=== PATIENT | male | born 1990 | race Caucasian/White ===

== ENCOUNTER 2018-09-23 16:50 | Emergency (ER) | payer OTHER ==
[2018-09-23] MEDS ORDERED: ONDANSETRON 4 MG TAB.RAPDIS PO ONE ×2 (19:05→19:11)
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
[2018-09-24 01:47] VITALS: BP 136/81
== END 2018-09-24 01:48 | disposition home or self-care (01) ==
LOC: ER 16:50
DX: T76.21XA Adult sexual abuse, suspected, initial encounter (principal); R41.3 Other amnesia; X58.XXXA Exposure to other specified factors, initial encounter; Z88.0 Allergy status to penicillin; Z90.49 Acquired absence of other specified parts of digestive tract
CPT/HCPCS: 99285; S0119

== ENCOUNTER 2018-10-01 08:05 | Emergency (ER) | payer OTHER ==
[2018-10-01] MEDS ORDERED: MAG HYDROX/AL HYDROX/SIMETH SUSP 30 ML UDCUP PO ONE (08:37)
[2018-10-01] MEDS ORDERED: METOCLOPRAMIDE HCL ORAL SOLN 10 MG/10 ML UDCUP PO ONE (08:37)
[2018-10-01] MEDS ORDERED: LIDOCAINE 2% VISCOUS SOLN 20 ML UDCUP PO ONE (08:37)
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
[2018-10-01 08:53] LABS: ABSOLUTE EOSINOPHILS # (AUTO) 0.4 10^3/uL (0.0-0.6); ABSOLUTE LYMPHOCYTES (AUTO) 1.3 10^3/uL (0.5-4.7); ABSOLUTE MONOCYTES (AUTO) 0.5 10^3/uL (0.1-1.4); ABSOLUTE NEUT (AUTO) 3.8 10^3/uL (1.7-8.2); BASOPHILS % (AUTO) 0.5 % (0-2); EOSINOPHILS % (AUTO) 6.8 % (0-6); HEMATOCRIT 47.9 % (37.9-51.0); HEMOGLOBIN 16.9 g/dL (13.5-17.0); MEAN CORPUSCULAR HEMOGLOBIN 30.6 pg (27.0-33.4); MEAN CORPUSCULAR HGB CONC 35.3 g/dL (32.0-36.0); MEAN CORPUSCULAR VOLUME 87 fl (80-97); MONOCYTES % (AUTO) 8.1 % (3-13); PLATELET COUNT 236 10^3/uL (150-450); RED BLOOD COUNT 5.54 10^6/uL (4.35-5.55); RED CELL DISTRIBUTION WIDTH 12.9 % (11.5-14.0); SEGMENTED NEUTROPHILS % (AUTO) 62.6 % (42-78); TOTAL CELLS COUNTED % (AUTO) 100 %; WHITE BLOOD COUNT 6.1 10^3/uL (4.0-10.5)
[2018-10-01 09:02] LABS: ALANINE AMINOTRANSFERASE 32 U/L (21-72); ALBUMIN 4.2 g/dL (3.5-5.0); ALKALINE PHOSPHATASE 61 U/L (38-126); ANION GAP 10 (5-19); ASPARTATE AMINO TRANSFERASE 29 U/L (17-59); BILIRUBIN,DIRECT 0.2 mg/dL (0.0-0.4); BILIRUBIN,TOTAL 0.8 mg/dL (0.2-1.3); BLOOD UREA NITROGEN 12 mg/dL (7-20); CALCIUM 9.6 mg/dL (8.4-10.2); CARBON DIOXIDE 22 mmol/L (22-30); CHLORIDE 109 mmol/L (98-107); GLUCOSE 122 mg/dL (75-110); LIPASE 1323.3 U/L (23-300); POTASSIUM 4.1 mmol/L (3.6-5.0); SODIUM 140.8 mmol/L (137-145); TOTAL PROTEIN 6.3 g/dL (6.3-8.2)
--- NOTE | 2018-10-01 09:25 | RADIOLOGY REPORT (SQ) ---
EXAM DESCRIPTION: CHEST SINGLE VIEW COMPLETED DATE/TIME: 10/01/2018 8:58 am REASON FOR STUDY: epigastric/cp COMPARISON: None. NUMBER OF VIEWS: One view. TECHNIQUE: Single frontal radiographic view of the chest acquired. LIMITATIONS: None. FINDINGS: LUNGS AND PLEURA: No opacities, masses or pneumothorax. No pleural effusion. MEDIASTINUM AND HILAR STRUCTURES: No masses. Contour normal. HEART AND VASCULAR STRUCTURES: Heart normal in size. Normal vasculature. BONES: No acute findings. HARDWARE: None in the chest. OTHER: No other significant finding. IMPRESSION: NO SIGNIFICANT RADIOGRAPHIC FINDING IN THE CHEST. TECHNICAL DOCUMENTATION: JOB ID: [id number] [employer]- All Rights Reserved Reading location - IP/workstation name: [email or web address]
--- NOTE | 2018-10-01 10:37 | RADIOLOGY REPORT (SQ) ---
EXAM DESCRIPTION: CT ABD/PELVIS WITH IV ONLY COMPLETED DATE/TIME: 10/01/2018 10:19 am REASON FOR STUDY: elevated lipase, epigastric pain COMPARISON: Abdominal ultrasound 02/06/2016 TECHNIQUE: CT scan of the abdomen and pelvis performed using helical scanning technique with dynamic intravenous contrast injection. No oral contrast. Images reviewed with lung, soft tissue, and bone windows. Reconstructed coronal and sagittal MPR images reviewed. Delayed images for evaluation of the urinary system also acquired. All images stored on PACS. All CT scanners at this facility use dose modulation, iterative reconstruction, and/or weight based d osing when appropriate to reduce radiation dose to as low as reasonably achievable (ALARA). [facility]: Dose Right [facility]: CareDose [facility]: Dose Right [facility]: Teradose 4D [facility]: [employer] CONTRAST TYPE AND DOSE: contrast/concentration: Isovue 350.00 mg/ml; Total Contrast Delivered: 100.0 ml; Total Saline Delivered: 72.0 ml RENAL FUNCTION: Creatinine 0.96 RADIATION DOSE: CT Rad equipment meets quality standard of care and radiation dose reduction techniq ues were employed. CTDIvol: 11.3 - 15.5 mGy. DLP: 1600 mGy-cm.. LIMITATIONS: None. FINDINGS: LOWER CHEST: Lung bases are clear. Small hiatal hernia LIVER: Normal size. No masses. No dilated ducts. SPLEEN: Normal size. No focal lesions. PANCREAS: No masses. No significant calcifications. No adjacent inflammation or peripancreatic fluid collections. Pancreatic duct not dilated. GALLBLADDER: Surgically absent ADRENAL GLANDS: No significant masses or asymmetry. RIGHT KIDNEY AND URETER: No solid masses. No significant calcifications. No hydronephrosis or hyd roureter. LEFT KIDNEY AND URETER: No solid masses. No significant calcifications. No hydronephrosis or hydr oureter. AORTA AND VESSELS: No aneurysm. No dissection. Renal arteries, SMA, celiac without stenosis. RETROPERITONEUM: No retroperitoneal adenopathy, hemorrhage or masses. BOWEL AND PERITONEAL CAVITY: No masses or inflammatory changes. No free fluid or peritoneal masses. APPENDIX: Normal. PELVIS: No mass. No free fluid. Normal bladder. ABDOMINAL WALL: No masses. No hernias. BONES: No significant or acute findings. OTHER: No other significant finding. IMPRESSION: Post cholecystectomy No peripancreatic fluid collections or inflammatory changes TECHNICAL DOCUMENTATION: JOB ID: [id number] Quality ID # [id number]: Final reports with documentation of one or more dose reduction techniques (e.g., Au tomated exposure control, adjustment of the mA and/or kV according to patient size, use of iterative reconstruction technique) 2010 [employer]- All Rights Reserved Reading location - IP/workstation name: [email or web address]
[2018-10-01] MEDS ORDERED: HYDROMORPHONE HCL INJ/PF 2 MG/ML AMPULE IV ONE (10:47)
[2018-10-01 11:46] VITALS: BP 130/80
--- NOTE | 2018-10-01 16:57 | EKG REPORT ---
SEVERITY:- ABNORMAL ECG - SINUS RHYTHM : Confirmed by: Margo Patricio 01-Oct-2018 16:56:45
== END 2018-10-01 11:45 | disposition home or self-care (01) ==
LOC: ER 08:05
DX: R10.13 Epigastric pain (principal); R74.8 Abnormal levels of other serum enzymes; R20.2 Paresthesia of skin; F17.200 Nicotine dependence, unspecified, uncomplicated; Z20.6 Contact with and (suspected) exposure to human immunodeficiency virus [HIV]; Z88.0 Allergy status to penicillin; Z87.19 Personal history of other diseases of the digestive system; Z90.49 Acquired absence of other specified parts of digestive tract
CPT/HCPCS: 93005; 99284; 96374; 36415; 83690; 85025; 80053; 84484; 71045; 74177; 93010; J3490; J1170

== ENCOUNTER 2018-10-24 13:15 | Observation (INO) | payer OTHER ==
[2018-10-24] MEDS ORDERED: KETOROLAC TROMETHAMINE INJ/PF 30 MG/1 ML SDV IV ONE (14:10)
[2018-10-24] MEDS ORDERED: FENTANYL CITRATE INJ/PF 100 MCG/2 ML AMPUL IV ONE (14:10)
[2018-10-24] MEDS ORDERED: ONDANSETRON HCL INJ/PF 4 MG/2 ML SDV IV ONE (14:10)
[2018-10-24] MEDS ORDERED: NORMAL SALINE 1000 ML 1,000 ML IV ONE (14:10)
--- NOTE | 2018-10-24 14:12 | ER Document Report ---
ED Medical Screen (RME) - General Chief Complaint: Epigastric Pain Stated Complaint: CHEST PAIN Time Seen by Provider: 10/24/18 14:07 Primary Care Provider: JUAN,MIGUEL [Primary Care Provider] - Follow up as needed Notes: Chief complaint: Abdominal pain History of complain:( obtained from----patient) 28 years old male with a history of pancreatitis diagnosed recently, status post cholecystectomy presents today with mid abdominal pain and nausea. PHYSICAL EXAMINATION: GENERAL: Well-appearing, well-nourished and in no acute distress. HEAD: Atraumatic, normocephalic. EYES: Pupils equal round and reactive to light, extraocular movements intact, conjunctiva are normal. ENT: Nares patent, oropharynx clear without exudates. Moist mucous membranes. NECK: Normal range of motion, supple without lymphadenopathy LUNGS: Breath sounds clear to auscultation bilaterally and equal. No wheezes rales or rhonchi. HEART: Regular rate and rhythm without murmurs ABDOMEN: Soft, mid abdominal tenderness noted, nondistended abdomen. No guarding, no rebound. No masses appreciated. Examination of genitals-deferred Musculoskeletal: Normal range of motion, no pitting or edema. No cyanosis. N Dictation was performed using [employer] voice recognition software TRAVEL OUTSIDE OF THE [place] IN LAST 30 DAYS: No - Related Data Allergies/Adverse Reactions: amoxicillin [Amoxicillin] Allergy (Severe, Verified 10/24/18 13:17) Hives Past Medical History - Past Medical History Cardiac Medical History: Denies: Hx Coronary Artery Disease, Hx Heart Attack, Hx Hypertension Pulmonary Medical History: Denies: Hx Asthma, Hx Bronchitis, Hx COPD, Hx Pneumonia Neurological Medical History: Reports: Hx Migraine. Denies: Hx Cerebrovascular Accident, Hx Seizures Renal/ Medical History: Denies: Hx Peritoneal Dialysis GI Medical History: Reports: Hx Gastritis, Hx Colonoscopy, Hx Endoscopy Musculoskeltal Medical History: Denies Hx Arthritis Past Surgical History: Reports: Hx Cholecystectomy - Immunizations Immunizations up to date: Yes Hx Diphtheria, Pertussis, Tetanus Vaccination: Yes Physical Exam - Vital signs Vitals: Temp Pulse Resp BP Pulse Ox 99.1 F 70 16 126/80 H 98 10/24/18 13:24 10/24/18 13:24 10/24/18 13:24 10/24/18 13:24 10/24/18 13:24 Course - Vital Signs Vital signs: Temp Pulse Resp BP Pulse Ox 99.1 F 70 16 126/80 H 98 10/24/18 13:24 10/24/18 13:24 10/24/18 13:24 10/24/18 13:24 10/24/18 13:24 Doctor's Discharge - Discharge [facility]errals: [facility] [[facility] - Follow up as needed
[2018-10-24 15:33] LABS: APPEARANCE,URINE CLEAR; BILIRUBIN,URINE NEGATIVE (NEGATIVE); COLOR,URINE YELLOW; GLUCOSE, URINE NEGATIVE (NEGATIVE); KETONES,URINE NEGATIVE (NEGATIVE); LEUKOCYTE ESTERASE,URINE NEGATIVE (NEGATIVE); NITRITE,URINE NEGATIVE (NEGATIVE); PROTEIN,URINE NEGATIVE (NEGATIVE); URINE SPECIFIC GRAVITY 1.011; UROBILINOGEN,URINE NEGATIVE mg/dL (<2.0)
[2018-10-24 15:44] LABS: ABSOLUTE EOSINOPHILS # (AUTO) 0.3 10^3/uL (0.0-0.6); ABSOLUTE LYMPHOCYTES (AUTO) 1.7 10^3/uL (0.5-4.7); ABSOLUTE MONOCYTES (AUTO) 0.9 10^3/uL (0.1-1.4); ABSOLUTE NEUT (AUTO) 7.5 10^3/uL (1.7-8.2); BASOPHILS % (AUTO) 0.2 % (0-2); EOSINOPHILS % (AUTO) 2.9 % (0-6); HEMATOCRIT 48.3 % (37.9-51.0); HEMOGLOBIN 17.4 g/dL (13.5-17.0); LYMPHOCYTES % (AUTO) 16.5 % (13-45); MEAN CORPUSCULAR HEMOGLOBIN 31.4 pg (27.0-33.4); MEAN CORPUSCULAR VOLUME 87 fl (80-97); MONOCYTES % (AUTO) 8.4 % (3-13); PLATELET COUNT 238 10^3/uL (150-450); RED BLOOD COUNT 5.54 10^6/uL (4.35-5.55); TOTAL CELLS COUNTED % (AUTO) 100 %; WHITE BLOOD COUNT 10.5 10^3/uL (4.0-10.5)
[2018-10-24 15:47] LABS: ALANINE AMINOTRANSFERASE 308 U/L (21-72); ALBUMIN 4.9 g/dL (3.5-5.0); ALKALINE PHOSPHATASE 92 U/L (38-126); ANION GAP 12 (5-19); ASPARTATE AMINO TRANSFERASE 278 U/L (17-59); BILIRUBIN,DIRECT 0.4 mg/dL (0.0-0.4); BILIRUBIN,TOTAL 1.2 mg/dL (0.2-1.3); BLOOD UREA NITROGEN 13 mg/dL (7-20); CALCIUM 10.1 mg/dL (8.4-10.2); CARBON DIOXIDE 25 mmol/L (22-30); CHLORIDE 103 mmol/L (98-107); GLUCOSE 91 mg/dL (75-110); LIPASE 1029.9 U/L (23-300); POTASSIUM 4.4 mmol/L (3.6-5.0); SODIUM 139.8 mmol/L (137-145)
[2018-10-24] MEDS ORDERED: NORMAL SALINE 1000 ML 1,000 ML IV PRN (17:04)
--- NOTE | 2018-10-24 17:06 | ER Document Report ---
ED GI/ - General Chief Complaint: Epigastric Pain Stated Complaint: CHEST PAIN Time Seen by Provider: 10/24/18 14:07 Mode of Arrival: Ambulatory Information source: Patient Notes: Patient presents complaining of epigastric abdominal pain for the past several weeks that worsened today. Patient was seen in the emergency department earlier this month for this problem and had an elevated lipase test. Patient was given prescription nausea medication as well as pain medicine. Patient has taken the pain medication and nausea medicine at home and despite this continues with nausea and pain. Patient denies any fever. Patient states that he was recently taking HIV antiviral drugs Truvada and Isentress prophylactically after potential exposure. Patient states that he just finished the medications yesterday. Patient denies any diarrhea. Patient denies any heavy alcohol use. TRAVEL OUTSIDE OF THE [place] IN LAST 30 DAYS: No - HPI Patient complains to provider of: Abdominal pain Onset: Other - Several weeks, worse today Timing/Duration: Worse Quality of pain: Achy Pain Level: 4 Location: Epigastric Associated symptoms: Lightheaded, Nausea. 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 Denies: Hx Cerebrovascular Accident, Hx Seizures Renal/ Medical History: Denies: Hx Peritoneal Dialysis GI Medical History: Reports: Hx Gastritis, Hx Gastroesophageal Reflux Disease, Hx Pancreatitis, Hx Colonoscopy, Hx Endoscopy Musculoskeletal Medical History: Denies Hx Arthritis Past Surgical History: Reports: Hx Cholecystectomy - Immunizations Immunizations up to date: Yes Hx Diphtheria, Pertussis, Tetanus Vaccination: Yes Review of Systems - Review of Systems Constitutional: No symptoms reported. denies: Fever EENT: No symptoms reported Cardiovascular: Chest pain, Lightheaded Respiratory: No symptoms reported. denies: Short of breath Gastrointestinal: Abdominal pain, Nausea, Vomiting. denies: Diarrhea Genitourinary: No symptoms reported. denies: Dysuria Male Genitourinary: No symptoms reported Musculoskeletal: No symptoms reported. denies: Back pain Skin: No symptoms reported Hematologic/Lymphatic: No symptoms reported Neurological/Psychological: No symptoms reported Physical Exam - Vital signs Vitals: Temp Pulse Resp BP Pulse Ox 99.1 F 70 16 126/80 H 98 10/24/18 13:24 10/24/18 13:24 10/24/18 13:24 10/24/18 13:24 10/24/18 13:24 - General General appearance: Appears well, Alert In distress: None - HEENT Head: Normocephalic, Atraumatic Eyes: Normal Neck: Normal, Supple. No: Lymphadenopathy - Respiratory Respiratory status: No respiratory distress Chest status: Nontender Breath sounds: Normal Chest palpation: Subcutaneous emphysema - Cardiovascular Rhythm: Regular Heart sounds: S1 appreciated, S2 appreciated Murmur: No - Abdominal Inspection: Normal Distension: No distension Bowel sounds: Normal Tenderness: Tender - epigastric Organomegaly: No organomegaly - Back Back: Normal, Nontender. No: CVA tenderness - Extremities General upper extremity: Normal inspection, Normal ROM General lower extremity: Normal inspection, Normal ROM - Neurological Neuro grossly intact: Yes Cognition: Normal Hewitt Coma Scale Eye Opening: Spontaneous Hewitt Coma Scale Verbal: Oriented Hewitt Coma Scale Motor: Obeys Commands Urmila Coma Scale Total: 15 - Psychological Associated symptoms: Normal affect, Normal mood - Skin Skin Temperature: Warm Skin Moisture: Dry Skin Color: Normal Course - Re-evaluation Re-evalutation: 10/24/18 17:[address] Morales recommends consultation with hospitalist for admission. Spoke with hospitalist Dr. Duran who advises obtaining stat CT scan and then calling with results. 10/24/18 18:[address] Duran regarding the results of the CAT scan test. Dr. Duran recommends calling Dr. Lindquist for observation admission. - Vital Signs Vital signs: Temp Pulse Resp BP Pulse Ox 99.1 F 70 16 126/80 H 98 10/24/18 13:24 10/24/18 13:24 10/24/18 13:24 10/24/18 13:24 10/24/18 13:24 - Laboratory Result Diagrams: 10/24/18 15:00 10/24/18 15:00 Laboratory results interpreted by me: 10/24/18 10/24/18 10/24/18 15:00 15:00 15:00 Hgb 17.4 H AST 278 H ALT 308 H Ammonia < 8.7 L Lipase 1029.9 H 10/24/18 18:21 Labs- Entire Visit 10/24/18 10/24/18 10/24/18 15:00 15:00 15:00 WBC 10.5 RBC 5.54 Hgb 17.4 H Hct 48.3 MCV 87 MCH 31.4 MCHC 36.0 RDW 13.0 Plt Count 238 Seg Neutrophils % 72.0 Lymphocytes % 16.5 Monocytes % 8.4 Eosinophils % 2.9 Basophils % 0.2 Absolute Neutrophils 7.5 Absolute Lymphocytes 1.7 Absolute Monocytes 0.9 Absolute Eosinophils 0.3 Absolute Basophils 0.0 Sodium 139.8 Potassium 4.4 Chloride 103 Carbon Dioxide 25 Anion Gap 12 BUN 13 Creatinine 1.05 Est GFR ( Amer) > 60 Est GFR (Non-Af Amer) > 60 Glucose 91 Calcium 10.1 Total Bilirubin 1.2 Direct Bilirubin 0.4 Neonat Total Bilirubin Not Reportable Neonat Direct Bilirubin Not Reportable Neonat Indirect Bili Not Reportable AST 278 H ALT 308 H Alkaline Phosphatase 92 Ammonia < 8.7 L Total Protein 7.0 Albumin 4.9 Lipase 1029.9 H Urine Color Urine Appearance Urine pH Ur Specific [place] Urine Protein Urine Glucose (UA) Urine Ketones Urine Blood Urine Nitrite Urine Bilirubin Urine Urobilinogen Ur Leukocyte Esterase Urine WBC (Auto) Squamous Epi Cells Auto Urine Ascorbic Acid 10/24/18 15:00 WBC RBC Hgb Hct MCV MCH MCHC RDW Plt Count Seg Neutrophils % Lymphocytes % Monocytes % Eosinophils % Basophils % Absolute Neutrophils Absolute Lymphocytes Absolute Monocytes Absolute Eosinophils Absolute Basophils Sodium Potassium Chloride Carbon Dioxide Anion Gap BUN Creatinine Est GFR ( Amer) Est GFR (Non-Af Amer) Glucose Calcium Total Bilirubin Direct Bilirubin Neonat Total Bilirubin Neonat Direct Bilirubin Neonat Indirect Bili AST ALT Alkaline Phosphatase Ammonia Total Protein Albumin Lipase Urine Color YELLOW Urine Appearance CLEAR Urine pH 6.0 Ur Specific [place] 1.011 Urine Protein NEGATIVE Urine Glucose (UA) NEGATIVE Urine Ketones NEGATIVE Urine Blood NEGATIVE Urine Nitrite NEGATIVE Urine Bilirubin NEGATIVE Urine Urobilinogen NEGATIVE Ur Leukocyte Esterase NEGATIVE Urine WBC (Auto) 1 Squamous Epi Cells Auto <1 Urine Ascorbic Acid NEGATIVE - Diagnostic Test Radiology reviewed: Reports reviewed Discharge - Discharge Clinical Impression: Nausea, Elevated liver function tests Pancreatitis Qualifiers: Chronicity: acute Pancreatitis type: drug induced Acute pancreatitis complication: unspecified Qualified Code(s): K85.30 - Drug induced acute pancreatitis without necrosis or infection Abdominal pain Qualifiers: Abdominal location: epigastric Qualified Code(s): R10.13 - Epigastric pain Condition: Stable Disposition: ADMITTED OBSERVATION Admitting Provider: Hospitalist Unit Admitted: Medical Floor
--- NOTE | 2018-10-24 18:10 | RADIOLOGY REPORT (SQ) ---
EXAM DESCRIPTION: CT ABD/PELVIS WITH IV ONLY COMPLETED DATE/TIME: 10/24/2018 5:56 pm REASON FOR STUDY: pancreatitis, elevated LFT/lipase COMPARISON: 10/01/2018 TECHNIQUE: CT scan of the abdomen and pelvis performed using helical scanning technique with dynamic intravenous contrast injection. No oral contrast. Images reviewed with lung, soft tissue, and bone windows. Reconstructed coronal and sagittal MPR images reviewed. Delayed images for evaluation of the urinary system also acquired. All images stored on PACS. All CT scanners at this facility use dose modulation, iterative reconstruction, and/or weight based d osing when appropriate to reduce radiation dose to as low as reasonably achievable (ALARA). [facility]: Dose Right [facility]: CareDose [facility]: Dose Right [facility]: Teradose 4D [facility]: [email or web address] CONTRAST TYPE AND DOSE: contrast/concentration: Isovue 350.00 mg/ml; Total Contrast Delivered: 100.0 ml; Total Saline Delivered: 72.0 ml RENAL FUNCTION: None required. The patient is less than 50 years old. RADIATION DOSE: CT Rad equipment meets quality standard of care and radiation dose reduction techniq ues were employed. CTDIvol: 12.3 - 16.8 mGy. DLP: 1654 mGy-cm.. LIMITATIONS: None. FINDINGS: LOWER CHEST: No significant findings. No nodules or infiltrates. LIVER: Normal size. No masses. No dilated ducts. SPLEEN: Normal size. No focal lesions. PANCREAS: No masses. No significant calcifications. No adjacent inflammation or peripancreatic fluid collections. Pancreatic duct not dilated. GALLBLADDER: Surgically absent. ADRENAL GLANDS: No significant masses or asymmetry. RIGHT KIDNEY AND URETER: No solid masses. No significant calcifications. No hydronephrosis or hyd roureter. LEFT KIDNEY AND URETER: No solid masses. No significant calcifications. No hydronephrosis or hydr oureter. AORTA AND VESSELS: No aneurysm. No dissection. Renal arteries, SMA, celiac without stenosis. RETROPERITONEUM: No retroperitoneal adenopathy, hemorrhage or masses. BOWEL AND PERITONEAL CAVITY: No masses or inflammatory changes. No free fluid or peritoneal masses. APPENDIX: Normal. PELVIS: No mass. No free fluid. Normal bladder. ABDOMINAL WALL: No masses. No hernias. BONES: No significant or acute findings. OTHER: No other significant finding. IMPRESSION: NO SIGNIFICANT OR ACUTE FINDING IN THE ABDOMEN OR PELVIS ON CT SCAN WITH IV CONTRAST. TECHNICAL DOCUMENTATION: JOB ID: [id number] Quality ID # [id number]: Final reports with documentation of one or more dose reduction techniques (e.g., Au tomated exposure control, adjustment of the mA and/or kV according to patient size, use of iterative reconstruction technique) 2010 [employer]- All Rights Reserved Reading location - IP/workstation name: [email or web address]
[2018-10-24] MEDS ORDERED: OXYCODONE-ACETAMINOPHEN 5-325 MG TABLET PO PRN (18:49)
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
[2018-10-24] MEDS ORDERED: ONDANSETRON 4 MG TAB.RAPDIS PO PRN (21:35)
[2018-10-24] MEDS ORDERED: (PENDING PHARMACY ID) (Eszopiclone [Lunesta] 1 MG) PO SCH (22:00)
[2018-10-24] MEDS: KETOROLAC TROMETHAMINE INJ/PF 30 MG/1 ML SDV IV PRN (22:11)
[2018-10-24] MEDS: NORMAL SALINE 1000 ML 1,000 ML IV PRN (22:12)
[2018-10-25] MEDS: KETOROLAC TROMETHAMINE INJ/PF 30 MG/1 ML SDV IV PRN (05:19)
[2018-10-25] MEDS: NORMAL SALINE 1000 ML 1,000 ML IV PRN ×2 (05:20→07:48)
[2018-10-25 06:40] LABS: ALANINE AMINOTRANSFERASE 218 U/L (21-72); ALBUMIN 3.5 g/dL (3.5-5.0); ALKALINE PHOSPHATASE 70 U/L (38-126); ANION GAP 6 (5-19); ASPARTATE AMINO TRANSFERASE 132 U/L (17-59); BILIRUBIN,DIRECT 0.2 mg/dL (0.0-0.4); BILIRUBIN,TOTAL 1.6 mg/dL (0.2-1.3); BLOOD UREA NITROGEN 11 mg/dL (7-20); CALCIUM 9.2 mg/dL (8.4-10.2); CARBON DIOXIDE 27 mmol/L (22-30); CHLORIDE 111 mmol/L (98-107); GLUCOSE 87 mg/dL (75-110); LIPASE 815.4 U/L (23-300); POTASSIUM 4.7 mmol/L (3.6-5.0); TOTAL PROTEIN 5.5 g/dL (6.3-8.2)
[2018-10-25] MEDS ORDERED: PAROXETINE HCL 20 MG TABLET PO SCH (10:00)
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
[2018-10-25 10:56] VITALS: BP 115/48
== END 2018-10-25 11:48 | disposition home or self-care (01) ==
LOC: ER 13:15 → EH 18:25 → 2N 19:50
PROVIDERS: ADMIT Internal Medicine; ATTEND Internal Medicine
DX: R74.8 Abnormal levels of other serum enzymes (principal); R79.89 Other specified abnormal findings of blood chemistry; R11.0 Nausea; R10.13 Epigastric pain; R42 Dizziness and giddiness; R07.9 Chest pain, unspecified; E66.9 Obesity, unspecified; F17.200 Nicotine dependence, unspecified, uncomplicated; Z23 Encounter for immunization; Z90.49 Acquired absence of other specified parts of digestive tract; Z79.899 Other long term (current) drug therapy; Z20.2 Contact with and (suspected) exposure to infections with a predominantly sexual mode of transmission; Z87.19 Personal history of other diseases of the digestive system
CPT/HCPCS: 99285; 96361; 96374; 96375; 36415 ×2; 82140; 83690 ×2; 85025; 80053 ×2; 81001; 74177; 90686; G0378 ×3; G0008; S0119; J3010; J1885 ×2; J3490; J2405; J7030 ×2; 90471

== ENCOUNTER 2018-12-23 18:06 | Emergency (ER) | payer OTHER ==
[2018-12-23] MEDS ORDERED: PROCHLORPERAZINE MALEATE 10 MG TABLET PO ONE (18:45)
[2018-12-23] MEDS ORDERED: IBUPROFEN 800 MG TABLET PO ONE (18:45)
[2018-12-23] MEDS ORDERED: DIPHENHYDRAMINE HCL 50 MG CAPSULE PO ONE (18:45)
--- NOTE | 2018-12-23 18:47 | ER Document Report ---
ED Medical Screen (RME) - General Chief Complaint: Headache Stated Complaint: HEADACHE,DIZZY,NAUSEA Time Seen by Provider: 12/23/18 18:45 Primary Care Provider: RAÚL CURIEL MD [Primary Care Provider] - Follow up as needed Mode of Arrival: Ambulatory Information source: Patient Notes: 28-year-old male presented to ED for complaint of a severe headache dizziness and nauseated. He states it may be 1 of the worst when he has had. He states he had a little headache this morning took some Aleve it went away during went to work out and started having a worse headache. States it kept getting worse so he stopped doing his workout and came to the emergency room. Patient is alert oriented respirations regular and unlabored speaks in full sentences. Patient states he smokes pack a day and does not drink or do any drugs. I have greeted and performed a rapid initial assessment of this patient. A comprehensive ED assessment and evaluation of the patient, analysis of test results and completion of medical decision making process will be conducted by an additional ED providers. TRAVEL OUTSIDE OF THE [place] IN LAST 30 DAYS: No - Related Data Allergies/Adverse Reactions: amoxicillin [Amoxicillin] Allergy (Severe, Verified 10/24/18 13:17) Hives Past Medical History - Past Medical History Cardiac Medical History: Reports: Hx Hypertension - prehypertension Denies: Hx Congestive Heart Failure, Hx Coronary Artery Disease, Hx Heart Attack Pulmonary Medical History: Denies: Hx Asthma, Hx Bronchitis, Hx COPD, Hx Pneumonia, Hx Tuberculosis Neurological Medical History: Reports: Hx Migraine. Denies: Hx Cerebrovascular Accident, Hx Seizures Renal/ Medical History: Denies: Hx Benign Prostatic Hyperplasia, Hx End Stage Renal Disease, Hx Kidney Stones, Hx Peritoneal Dialysis GI Medical History: Reports: Hx Cirrhosis - maybe not sure, Hx Gastritis, Hx Gastroesophageal Reflux Disease, Hx Pancreatitis, Hx Ulcer - never diagnosed, Hx Colonoscopy, Hx Endoscopy Musculoskeltal Medical History: Denies Hx Arthritis, Denies Hx Multiple Sclerosis Psychiatric Medical History: Reports: Hx Depression Denies: Hx Bipolar Disorder, Hx Schizophrenia Past Surgical History: Reports: Hx Cholecystectomy - Immunizations Immunizations up to date: Yes Hx Diphtheria, Pertussis, Tetanus Vaccination: Yes History of Influenza Vaccine for 05/2017 - 10/2017 Season: No Physical Exam - Vital signs Vitals: Temp Pulse Resp BP Pulse Ox 98.5 F 84 18 154/98 H 97 12/23/18 18:11 12/23/18 18:11 12/23/18 18:11 12/23/18 18:11 12/23/18 18:11 Course - Vital Signs Vital signs: Temp Pulse Resp BP Pulse Ox 98.5 F 84 18 154/98 H 97 12/23/18 18:11 12/23/18 18:11 12/23/18 18:11 12/23/18 18:11 12/23/18 18:11 Doctor's Discharge - Discharge Referrals: RAÚL CURIEL MD [Primary Care Provider] - Follow up as needed
[2018-12-23 19:16] LABS: ABSOLUTE BASOPHILS # (AUTO) 0.1 10^3/uL (0.0-0.2); ABSOLUTE EOSINOPHILS # (AUTO) 0.6 10^3/uL (0.0-0.6); ABSOLUTE MONOCYTES (AUTO) 0.8 10^3/uL (0.1-1.4); BASOPHILS % (AUTO) 0.6 % (0-2); EOSINOPHILS % (AUTO) 5.6 % (0-6); HEMATOCRIT 47.6 % (37.9-51.0); HEMOGLOBIN 16.9 g/dL (13.5-17.0); LYMPHOCYTES % (AUTO) 19.3 % (13-45); MEAN CORPUSCULAR HEMOGLOBIN 31.3 pg (27.0-33.4); MEAN CORPUSCULAR HGB CONC 35.6 g/dL (32.0-36.0); MEAN CORPUSCULAR VOLUME 88 fl (80-97); MONOCYTES % (AUTO) 7.8 % (3-13); PLATELET COUNT 255 10^3/uL (150-450); RED CELL DISTRIBUTION WIDTH 12.3 % (11.5-14.0); SEGMENTED NEUTROPHILS % (AUTO) 66.7 % (42-78); TOTAL CELLS COUNTED % (AUTO) 100 %; WHITE BLOOD COUNT 10.5 10^3/uL (4.0-10.5)
[2018-12-23 19:36] LABS: ALANINE AMINOTRANSFERASE 50 U/L (21-72); ALBUMIN 4.2 g/dL (3.5-5.0); ALKALINE PHOSPHATASE 58 U/L (38-126); ANION GAP 14 (5-19); ASPARTATE AMINO TRANSFERASE 32 U/L (17-59); BILIRUBIN,DIRECT 0.3 mg/dL (0.0-0.4); BILIRUBIN,TOTAL 0.6 mg/dL (0.2-1.3); BLOOD UREA NITROGEN 27 mg/dL (7-20); CALCIUM 9.6 mg/dL (8.4-10.2); CARBON DIOXIDE 21 mmol/L (22-30); CHLORIDE 107 mmol/L (98-107); GLUCOSE 107 mg/dL (75-110); POTASSIUM 3.8 mmol/L (3.6-5.0); SODIUM 142.2 mmol/L (137-145); TOTAL PROTEIN 6.2 g/dL (6.3-8.2)
[2018-12-23 20:04] LABS: LIPASE 111.9 U/L (23-300)
[2018-12-23 20:05] LABS: ALCOHOL < 10 mg/dL (NONE DETECTED)
[2018-12-23] MEDS ORDERED: KETOROLAC TROMETHAMINE 60 MG/2 ML SDV IM ONE (20:22)
--- NOTE | 2018-12-23 20:27 | ER Document Report ---
ED General - General Chief Complaint: Headache Stated Complaint: HEADACHE,DIZZY,NAUSEA Time Seen by Provider: 12/23/18 18:45 Primary Care Provider: RAÚL CURIEL MD [Primary Care Provider] - Follow up as needed Mode of Arrival: Ambulatory TRAVEL OUTSIDE OF THE [place] IN LAST 30 DAYS: No - HPI Patient complains to provider of: Headache dizziness nausea Notes: Patient coming in for headache dizziness nausea. Patient seen in triage whose notes provided below 28-year-old male presented to ED for complaint of a severe headache dizziness and nauseated. He states it may be 1 of the worst when he has had. He states he had a little headache this morning took some Aleve it went away during went to work out and started having a worse headache. States it kept getting worse so he stopped doing his workout and came to the emergency room. Patient is alert oriented respirations regular and unlabored speaks in full sentences. P atient states he smokes pack a day and does not drink or do any drugs. Patient upon my evaluation states feeling better. Patient states headaches come down from a 5-3. Patient denies any history of head trauma states headaches are similar to headaches he had in the past that are normally leave with leave. Patient is no relief with Aleve today. Patient states he drinks approximately a gallon of water a day patient otherwise looks to be no obvious distress upon my evaluation. - Related Data Allergies/Adverse Reactions: amoxicillin [Amoxicillin] Allergy (Severe, Verified 10/24/18 13:17) Hives Past Medical History - General Information source: Patient - Social History Smoking Status: Current Every Day Smoker Chew tobacco use (# tins/day): Yes Frequency of alcohol use: Rare Drug Abuse: None Family History: Reviewed & Not Pertinent Patient has suicidal ideation: No Patient has homicidal ideation: No - Past Medical History Cardiac Medical History: Reports: Hx Hypertension - prehypertension Denies: Hx Congestive Heart Failure, Hx Coronary Artery Disease, Hx Heart Attack Pulmonary Medical History: Denies: Hx Asthma, Hx Bronchitis, Hx COPD, Hx Pneumonia, Hx Tuberculosis Neurological Medical History: Reports: Hx Migraine. Denies: Hx Cerebrovascular Accident, Hx Seizures Renal/ Medical History: Denies: Hx Benign Prostatic Hyperplasia, Hx End Stage Renal Disease, Hx Kidney Stones, Hx Peritoneal Dialysis GI Medical History: Reports: Hx Cirrhosis - maybe not sure, Hx Gastritis, Hx Gastroesophageal Reflux Disease, Hx Pancreatitis, Hx Ulcer - never diagnosed, Hx Colonoscopy, Hx Endoscopy Musculoskeletal Medical History: Denies Hx Arthritis, Denies Hx Multiple Sclerosis Psychiatric Medical History: Reports: Hx Depression Denies: Hx Bipolar Disorder, Hx Schizophrenia Past Surgical History: Reports: Hx Cholecystectomy - Immunizations Immunizations up to date: Yes Hx Diphtheria, Pertussis, Tetanus Vaccination: Yes Review of Systems - Review of Systems Constitutional: No symptoms reported EENT: No symptoms reported Cardiovascular: No symptoms reported Respiratory: No symptoms reported Gastrointestinal: No symptoms reported Genitourinary: No symptoms reported Male Genitourinary: No symptoms reported Musculoskeletal: No symptoms reported Skin: No symptoms reported Hematologic/Lymphatic: No symptoms reported Neurological/Psychological: Headaches -: Yes All other systems reviewed and negative Physical Exam - Vital signs Vitals: Temp Pulse Resp BP Pulse Ox 98.5 F 84 18 154/98 H 97 12/23/18 18:11 12/23/18 18:11 12/23/18 18:11 12/23/18 18:11 12/23/18 18:11 Interpretation: Normal - General General appearance: Appears well, Alert - HEENT Head: Normocephalic, Atraumatic Eyes: Normal Pupils: PERRL - Respiratory Respiratory status: No respiratory distress Chest status: Nontender Breath sounds: Normal Chest palpation: Normal - Cardiovascular Rhythm: Regular Heart sounds: Normal auscultation Murmur: No - Abdominal Inspection: Normal Distension: No distension Bowel sounds: Normal Tenderness: Nontender Organomegaly: No organomegaly - Back Back: Normal, Nontender - Extremities General upper extremity: Normal inspection, Nontender, Normal color, Normal ROM, Normal temperature General lower extremity: Normal inspection, Nontender, Normal color, Normal ROM, Normal temperature, Normal weight bearing. 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 The patient is neurologically intact. Given the extremely low risk of these diagnoses further testing and evaluation for these possibilities does not appear to be indicated at this time. The patient has been instructed to return if the symptoms worsen or change in any way.. - Vital Signs Vital signs: Temp Pulse Resp BP Pulse Ox 98.5 F 70 18 135/72 H 98 12/23/18 20:44 12/23/18 20:44 12/23/18 20:44 12/23/18 20:44 12/23/18 20:44 - Laboratory Result Diagrams: 12/23/18 19:02 12/23/18 19:02 Laboratory results interpreted by me: 12/23/18 19:02 Carbon Dioxide 21 L BUN 27 H Total Protein 6.2 L Discharge - Discharge Clinical Impression: Headache Qualifiers: Headache type: unspecified Headache chronicity pattern: unspecified pattern Intractability: not intractable Qualified Code(s): R51 - Headache Disposition: HOME, SELF-CARE Instructions: Headache ([facility]) Additional Instructions: Your laboratory examination does show some signs of dehydration please make sure you are drinking plenty of fluids such as water or fluids with electrolyte such as Pedialyte or Gatorade. I recommend taking Zofran and Compazine together for your headache may also take Tylenol Motrin together for your headache. Return to the ER symptoms worsen. Prescriptions: Ibuprofen [Motrin 600 mg Tablet] 600 mg PO Q8HP PRN #21 tablet PRN Reason: Prochlorperazine Maleate [Compazine] 5 mg PO Q6 #30 tablet Referrals: RAÚL CURIEL MD [Primary Care Provider] - Follow up as needed
[2018-12-23 20:45] VITALS: BP 135/72
== END 2018-12-23 20:45 | disposition home or self-care (01) ==
LOC: ER 18:06
DX: R51 Headache (principal); R42 Dizziness and giddiness; R11.0 Nausea; F17.200 Nicotine dependence, unspecified, uncomplicated; I10 Essential (primary) hypertension
CPT/HCPCS: 99284; 96372; 36415; 80307; 83690; 85025; 80053; J1885; S0183

== ENCOUNTER 2018-12-26 21:27 | Emergency (ER) | payer OTHER ==
[2018-12-26] MEDS ORDERED: METOCLOPRAMIDE HCL INJ/PF 10 MG/2 ML SDV IV ONE (23:55)
[2018-12-26] MEDS ORDERED: KETOROLAC TROMETHAMINE INJ/PF 30 MG/1 ML SDV IV ONE (23:55)
[2018-12-26] MEDS ORDERED: NORMAL SALINE 1000 ML 1,000 ML IV ONE (23:55)
[2018-12-26] MEDS ORDERED: DIPHENHYDRAMINE HCL 50 MG/ML VIAL IV ONE (23:55)
[2018-12-27 00:33] LABS: ABSOLUTE BASOPHILS # (AUTO) 0.1 10^3/uL (0.0-0.2); ABSOLUTE EOSINOPHILS # (AUTO) 0.6 10^3/uL (0.0-0.6); ABSOLUTE LYMPHOCYTES (AUTO) 2.6 10^3/uL (0.5-4.7); ABSOLUTE MONOCYTES (AUTO) 0.9 10^3/uL (0.1-1.4); ABSOLUTE NEUT (AUTO) 4.8 10^3/uL (1.7-8.2); BASOPHILS % (AUTO) 0.7 % (0-2); EOSINOPHILS % (AUTO) 6.8 % (0-6); HEMATOCRIT 46.2 % (37.9-51.0); HEMOGLOBIN 16.2 g/dL (13.5-17.0); LYMPHOCYTES % (AUTO) 29.1 % (13-45); MEAN CORPUSCULAR HEMOGLOBIN 30.6 pg (27.0-33.4); MEAN CORPUSCULAR HGB CONC 35.1 g/dL (32.0-36.0); MEAN CORPUSCULAR VOLUME 87 fl (80-97); MONOCYTES % (AUTO) 9.7 % (3-13); PLATELET COUNT 220 10^3/uL (150-450); RED BLOOD COUNT 5.29 10^6/uL (4.35-5.55); RED CELL DISTRIBUTION WIDTH 12.3 % (11.5-14.0); SEGMENTED NEUTROPHILS % (AUTO) 53.7 % (42-78); TOTAL CELLS COUNTED % (AUTO) 100 %; WHITE BLOOD COUNT 8.9 10^3/uL (4.0-10.5)
[2018-12-27 01:04] LABS: ALANINE AMINOTRANSFERASE 50 U/L (21-72); ALBUMIN 4.1 g/dL (3.5-5.0); ALKALINE PHOSPHATASE 55 U/L (38-126); ANION GAP 9 (5-19); ASPARTATE AMINO TRANSFERASE 28 U/L (17-59); BILIRUBIN,DIRECT 0.2 mg/dL (0.0-0.4); BILIRUBIN,TOTAL 0.6 mg/dL (0.2-1.3); BLOOD UREA NITROGEN 15 mg/dL (7-20); CALCIUM 9.9 mg/dL (8.4-10.2); CARBON DIOXIDE 26 mmol/L (22-30); CHLORIDE 106 mmol/L (98-107); GLUCOSE 91 mg/dL (75-110); POTASSIUM 4.1 mmol/L (3.6-5.0); SODIUM 140.6 mmol/L (137-145); TOTAL PROTEIN 6.5 g/dL (6.3-8.2)
--- NOTE | 2018-12-27 01:52 | ER Document Report ---
ED General - General Chief Complaint: Headache Stated Complaint: HEADACHE AND LIGHT SENSITIVE Time Seen by Provider: 12/26/18 23:32 Primary Care Provider: RAÚL CURIEL MD [Primary Care Provider] - Follow up as needed TRAVEL OUTSIDE OF THE [place] IN LAST 30 DAYS: No - HPI Notes: Patient is a 28-year-old male with a history of TBI as well as migraines who presents to the emergency department for evaluation of a headache. Is been there for several days. He states he has had some improvement with treatments, but it is not resolved. Today it got worse, he felt as if he was extremely photosensitive. He has had some nausea but no emesis. He states he is having difficulty focusing at work, cannot focus on a computer screen. He said no ringing in his ears. No fevers. No sore throat. - Related Data Allergies/Adverse Reactions: amoxicillin [Amoxicillin] Allergy (Severe, Verified 10/24/18 13:17) Hives Past Medical History - General Information source: Patient - Social History Smoking Status: Current Every Day Smoker Chew tobacco use (# tins/day): No Frequency of alcohol use: None Drug Abuse: None Family History: Reviewed & Not Pertinent Patient has suicidal ideation: No Patient has homicidal ideation: No - Past Medical History Cardiac Medical History: Reports: Hx Hypertension - prehypertension Denies: Hx Congestive Heart Failure, Hx Coronary Artery Disease, Hx Heart Attack Pulmonary Medical History: Denies: Hx Asthma, Hx Bronchitis, Hx COPD, Hx Pneumonia, Hx Tuberculosis Neurological Medical History: Reports: Hx Migraine, Other - History of TBI. Denies: Hx Cerebrovascular Accident, Hx Seizures Renal/ Medical History: Denies: Hx Benign Prostatic Hyperplasia, Hx End Stage Renal Disease, Hx Kidney Stones, Hx Peritoneal Dialysis GI Medical History: Reports: Hx Cirrhosis - maybe not sure, Hx Gastritis, Hx Gastroesophageal Reflux Disease, Hx Pancreatitis, Hx Ulcer - never diagnosed, Hx Colonoscopy, Hx Endoscopy Musculoskeletal Medical History: Denies Hx Arthritis, Denies Hx Multiple S clerosis Psychiatric Medical History: Reports: Hx Depression Denies: Hx Bipolar Disorder, Hx Schizophrenia Past Surgical History: Reports: Hx Cholecystectomy - Immunizations Immunizations up to date: Yes Hx Diphtheria, Pertussis, Tetanus Vaccination: Yes Review of Systems - Review of Systems Constitutional: No symptoms reported EENT: No symptoms reported Cardiovascular: No symptoms reported Respiratory: No symptoms reported Gastrointestinal: No symptoms reported Genitourinary: No symptoms reported Musculoskeletal: See HPI Skin: No symptoms reported Neurological/Psychological: See HPI Physical Exam - Vital signs Vitals: Temp Pulse Resp BP Pulse Ox 98.2 F 78 16 161/76 H 98 12/26/18 21:50 12/26/18 21:50 12/26/18 21:50 12/26/18 21:50 12/26/18 21:50 - Notes Notes: Vital signs reviewed, please refer to chart. Patient is normocephalic, atraumatic. Pupils equal round, reactive to light. Oral mucosa is moist, pharynx is without erythema or exudate. Neck is without meningismus. He is tender to palpation at the base of the occiput on the left, with increased muscle spasm throughout the cervical spine. Heart is regular rate and rhythm. Lungs are clear to auscultation bilaterally. Abdomen is soft, nontender, normoactive bowel sounds throughout. Extremities without cyanosis, clubbing, edema. Peripheral pulses are equal. Skin is warm and dry. Patient is awake, alert, oriented x3. Cranial nerves II through XII grossly intact without focal neurological deficits. Strength is plus 5 out of 5 bilateral upper and lower extremities. Sensation is intact. Intact [id number], rapid eye movements, [id number]. Course - Re-evaluation Re-evalutation: 12/27/18 01:47 Patient is a 28-year-old male with a history of headaches who presents to the emergency department for evaluation of an intractable headache. He is medicated here with Toradol, Reglan, Benadryl, IV fluids. Laboratory investigations were obtained. His neurological exam is entirely unremarkable. He has no signs of meningitis. I do suspect that there is some aspect of tension headache that is complicating this migraine. I will then send him home with some muscle relaxers as well. He is already been given prescriptions for Compazine and Imitrex at home. [facility], I encouraged him to follow-up with neurology for migraine control. He is to return to the emergency department with worsening or new concerning symptoms of any sort. - Vital Signs Vital signs: Temp Pulse Resp BP Pulse Ox 98.2 F 78 16 161/76 H 98 12/26/18 21:50 12/26/18 21:50 12/26/18 21:50 12/26/18 21:50 12/26/18 21:50 - Laboratory Result Diagrams: 12/27/18 00:15 12/27/18 00:15 Laboratory results interpreted by me: 12/27/18 00:15 Eosinophils % 6.8 H Discharge - Discharge Clinical Impression: Migraine Qualifiers: Migraine type: without aura Tension type headache Qualifiers: Headache chronicity pattern: acute headache Condition: Stable Disposition: HOME, SELF-CARE Instructions: Headache ([facility]), Toradol Injection ([facility]), Reglan ([facility]) Additional Instructions: Rest. Take Flexeril as needed for pain, watch for dizziness and drowsiness with this medication. [facility] He may want to consider referral onto neurology for better headache control. Return to the emergency department with worsening or new concerning symptoms of any sort. Referrals: RAÚL CURIEL MD [Primary Care Provider] - Follow up as needed
[2018-12-27 02:05] VITALS: BP 158/82
== END 2018-12-27 02:09 | disposition home or self-care (01) ==
LOC: ER 21:27
DX: G43.009 Migraine without aura, not intractable, without status migrainosus (principal); Z87.820 Personal history of traumatic brain injury; F17.200 Nicotine dependence, unspecified, uncomplicated; I10 Essential (primary) hypertension
CPT/HCPCS: 99283; 96361; 96374; 96375; 36415; 85025; 80053; J1200; J1885; J2765; J7030

== ENCOUNTER 2018-12-28 16:02 | Emergency (ER) | payer OTHER ==
[2018-12-28] MEDS ORDERED: DIPHENHYDRAMINE HCL 50 MG/ML VIAL IV ONE (17:32)
[2018-12-28] MEDS ORDERED: DEXAMETHASONE SOD PHOS INJ 10 MG/1 ML VIAL IV ONE (17:32)
[2018-12-28] MEDS ORDERED: KETOROLAC TROMETHAMINE INJ/PF 30 MG/1 ML SDV IV ONE (17:32)
[2018-12-28] MEDS ORDERED: METOCLOPRAMIDE HCL INJ/PF 10 MG/2 ML SDV IV ONE (17:32)
[2018-12-28] MEDS ORDERED: VALPROATE SODIUM INJ/PF 500 MG/5 ML SDV IV ONE (17:33)
--- NOTE | 2018-12-28 17:36 | ER Document Report ---
ED Medical Screen (RME) - General Chief Complaint: Headache Stated Complaint: HEADACHE/DIZZY/BLURRED VISION/NAUSEA Time Seen by Provider: 12/28/18 17:28 Primary Care Provider: RAÚL CURIEL MD [Primary Care Provider] - Follow up as needed Mode of Arrival: Ambulatory Information source: Patient TRAVEL OUTSIDE OF THE [place] IN LAST 30 DAYS: No - HPI Patient complains to provider of: HEADACHE Notes: 12/28/18 17:34 Patient here with complaints of headache. The patient has a history of migraine headaches. He has had this headache for 6 days. Is been constant, although it has improved some. Is been seen here twice and has been seen at the [facility] and given multiple medications. His last visit here he had about 80% reduction in his headache. Today the headache returned. He denies any recent head injuries. No blood thinners, no fever. He denies any unilateral numbness, tingling, weakness. He does complain of photophobia. Occasional blurred vision. Exam No distress, nontoxic appearing. Wearing sunglasses. Nonfocal neurological exam. Lung sounds clear and equal throughout, heart sounds normal. Plan Since this is the patient's fourth visit for the same headache, I have ordered a head CT. Saline lock, Toradol, Reglan, Benadryl, Decadron, Depakote. An initial examination was made on the patient as part of the triage process, and it was determined a more comprehensive evaluation was necessary. Initial labs were ordered and patient was transferred to another provider in the ED who assumed care and finished evaluation and plan. - Related Data Allergies/Adverse Reactions: amoxicillin [Amoxicillin] Allergy (Severe, Verified 10/24/18 13:17) Hives Past Medical History - Social History Frequency of alcohol use: Rare Drug Abuse: None - Past Medical History Cardiac Medical History: Reports: Hx Hypertension - prehypertension Denies: Hx Congestive Heart Failure, Hx Coronary Artery Disease, Hx Heart Attack Pulmonary Medical History: Denies: Hx Asthma, Hx Bronchitis, Hx COPD, Hx Pneumonia, Hx Tuberculosis Neurological Medical History: Reports: Hx Migraine. Denies: Hx Cerebrovascular Accident, Hx Seizures Renal/ Medical History: Denies: Hx Benign Prostatic Hyperplasia, Hx End Stage Renal Disease, Hx Kidney Stones, Hx Peritoneal Dialysis GI Medical History: Reports: Hx Cirrhosis - maybe not sure, Hx Gastritis, Hx Gastroesophageal Reflux Disease, Hx Pancreatitis, Hx Ulcer - never diagnosed, Hx Colonoscopy, Hx Endoscopy Musculoskeltal Medical History: Denies Hx Arthritis, Denies Hx Multiple Sclerosis Psychiatric Medical History: Reports: Hx Depression Denies: Hx Bipolar Disorder, Hx Schizophrenia Past Surgical History: Reports: Hx Cholecystectomy - Immunizations Immunizations up to date: Yes Hx Diphtheria, Pertussis, Tetanus Vaccination: Yes History of Influenza Vaccine for 05/2017 - 10/2017 Season: No Physical Exam - Vital signs Vitals: Temp Pulse Resp BP Pulse Ox 98.2 F 70 16 157/89 H 98 12/28/18 16:10 12/28/18 16:10 12/28/18 16:10 12/28/18 16:10 12/28/18 16:10 Course - Vital Signs Vital signs: Temp Pulse Resp BP Pulse Ox 98.2 F 70 16 157/89 H 98 12/28/18 16:10 12/28/18 16:10 12/28/18 16:10 12/28/18 16:10 12/28/18 16:10 Doctor's Discharge - Discharge Referrals: RAÚL CURIEL MD [Primary Care Provider] - Follow up as needed
--- NOTE | 2018-12-28 17:56 | RADIOLOGY REPORT (SQ) ---
EXAM DESCRIPTION: CT HEAD WITHOUT COMPLETED DATE/TIME: 12/28/2018 5:43 pm REASON FOR STUDY: HEADACHE COMPARISON: None. TECHNIQUE: Axial images acquired through the brain without intravenous contrast. Images reviewed wi th bone, brain and subdural windows. Images stored on PACS. All CT scanners at this facility use dose modulation, iterative reconstruction, and/or weight based d osing when appropriate to reduce radiation dose to as low as reasonably achievable (ALARA). [facility]: Dose Right [facility]: CareDose [facility]: Dose Right [facility]: Teradose 4D [facility]: Definiens RADIATION DOSE: CT Rad equipment meets quality standard of care and radiation dose reduction techniq ues were employed. CTDIvol: 53.2 mGy. DLP: 1044 mGy-cm. mGy. LIMITATIONS: None. FINDINGS: VENTRICLES: Normal size and contour. CEREBRUM: No masses. No hemorrhage. No midline shift. No evidence for acute infarction. Normal gra y/white matter differentiation. No areas of low density in the white matter. CEREBELLUM: No masses. No hemorrhage. No alteration of density. No evidence for acute infarction. EXTRAAXIAL SPACES: No fluid collections. No masses. ORBITS AND GLOBE: No intra- or extraconal masses. Normal contour of globe without masses. CALVARIUM: No fracture. PARANASAL SINUSES: No fluid or mucosal thickening. SOFT TISSUES: No mass or hematoma. OTHER: No other significant finding. IMPRESSION: No acute intracranial findings. EVIDENCE OF ACUTE STROKE: NO. COMMENT: Quality ID # [id number]: Final reports with documentation of one or more dose reduction techniques (e.g., Automated exposure control, adjustment of the mA and/or kV according to patient size, use of iterative reconstruction technique) TECHNICAL DOCUMENTATION: JOB ID: [id number] [id number] 2010 [employer]- All Rights Reserved Reading location - IP/workstation name: [email or web address]
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
[2018-12-28 22:48] VITALS: BP 122/69
== END 2018-12-28 22:53 | disposition home or self-care (01) ==
LOC: ER 16:02
DX: R51 Headache (principal); R42 Dizziness and giddiness; H53.8 Other visual disturbances; F17.200 Nicotine dependence, unspecified, uncomplicated; Z88.0 Allergy status to penicillin
CPT/HCPCS: 99284; 96375; 96365; 70450; J1200; J1885; J2765; J1100; J3490

== ENCOUNTER 2019-09-21 02:42 | Emergency (ER) | payer OTHER ==
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
[2019-09-21] MEDS ORDERED: CEPHALEXIN 500 MG CAPSULE PO ONE (06:23)
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
[2019-09-21] MEDS ORDERED: ONDANSETRON 4 MG TAB.RAPDIS PO ONE (06:38)
[2019-09-21] MEDS ORDERED: OXYCODONE-ACETAMINOPHEN 5-325 MG TABLET PO ONE (06:38)
[2019-09-21 06:44] VITALS: BP 130/78
== END 2019-09-21 06:44 | disposition home or self-care (01) ==
LOC: ER 02:42
DX: S61.211A Laceration without foreign body of left index finger without damage to nail, initial encounter (principal); W27.8XXA Contact with other nonpowered hand tool, initial encounter; F17.200 Nicotine dependence, unspecified, uncomplicated; Z90.49 Acquired absence of other specified parts of digestive tract
CPT/HCPCS: 99283; 73140; 12001; S0119

== ENCOUNTER 2019-11-16 05:16 | Emergency (ER) | payer OTHER ==
[2019-11-16] MEDS ORDERED: LIDOCAINE 5% (700 MG) TRANSDERMAL ADH..PATCH TP ONE (06:24)
[2019-11-16] MEDS ORDERED: HYDROMORPHONE HCL INJ/PF 2 MG/ML AMPULE IM ONE (06:24)
[2019-11-16] MEDS ORDERED: KETOROLAC TROMETHAMINE 60 MG/2 ML SDV IM ONE (06:24)
[2019-11-16 06:29] LABS: AMORPHOUS SEDIMENT,URINE TRACE /HPF; APPEARANCE,URINE SLIGHTLY-CLOUDY; BILIRUBIN,URINE NEGATIVE (NEGATIVE); COLOR,URINE YELLOW; GLUCOSE, URINE NEGATIVE (NEGATIVE); KETONES,URINE NEGATIVE (NEGATIVE); LEUKOCYTE ESTERASE,URINE NEGATIVE (NEGATIVE); NITRITE,URINE NEGATIVE (NEGATIVE); PROTEIN,URINE NEGATIVE (NEGATIVE); UROBILINOGEN,URINE NEGATIVE mg/dL (<2.0)
--- NOTE | 2019-11-16 06:29 | ER Document Report ---
HPI - HPI Patient complains to provider of: Back pain Time Seen by Provider: 11/16/19 06:02 Onset: Last week Onset/Duration: Worse Quality of pain: Sharp, Stabbing Pain Level: 5 Context: Patient presents with a history of chronic low back pain that has flared up over the past week. Patient states that he has been doing some home improvement recently although denies any new injury. Patient states that the pain will occasionally radiate into the right lower extremity. Patient states sometimes he will have pain that radiates to the left lower extremity. Patient denies any urinary retention or incontinence. Patient denies any fever. Patient states he has had pain like this in the past with flareups. Patient has been followed by pain management although his referral had . Associated Symptoms: Other - Low back pain. denies: Fever Exacerbated by: Standing, Movement, Walking Relieved by: Denies Similar symptoms previously: Yes Recently seen / treated by doctor: No - ROS ROS below otherwise negative: Yes Systems Reviewed and Negative: Yes All other systems reviewed and negative - CONSTITUTIONAL Constitutional: DENIES: Fever, Chills - NEURO Neurology: DENIES: Weakness - GASTROINTESTINAL Gastrointestinal: DENIES: Nausea - MUSCULOSKELETAL Musculoskeletal: REPORTS: Extremity pain, Back Pain - DERM Skin Color: Normal Skin Problems: None Past Medical History - General Information source: Patient - Social History Smoking Status: Never Smoker Chew tobacco use (# tins/day): Yes Frequency of alcohol use: None Drug Abuse: None Lives with: Family Family History: Reviewed & Not Pertinent Patient has suicidal ideation: No Patient has homicidal ideation: No Neurological Medical History: Reports: Hx Migraine Renal/ Medical History: Denies: Hx Benign Prostatic Hyperplasia, Hx End Stage Renal Disease, Hx Kidney Stones, Hx Peritoneal Dialysis GI Medical History: Reports: Hx Gastritis, Hx Gastroesophageal Reflux Disease, Hx Pancreatitis, Hx Ulcer - never diagnosed, Hx Colonoscopy, Hx Endoscopy Musculoskeletal Medical History: Reports Hx Arthritis, Denies Hx Multiple Sclerosis, Reports Other - Chronic back pain Psychiatric Medical History: Reports: Hx Depression Past Surgical History: Reports: Hx Cholecystectomy - Immunizations Immunizations up to date: Yes Hx Diphtheria, Pertussis, Tetanus Vaccination: Yes [employer] Provider Document - CONSTITUTIONAL Agree With Documented VS: Yes Exam Limitations: No Limitations General Appearance: WD/WN, No Apparent Distress Notes: PHYSICAL EXAMINATION: GENERAL: Well-appearing, well-nourished and in no acute distress. HEAD: Atraumatic, normocephalic. EYES: sclera clear, anicteric, conjunctiva are normal. ENT: nares patent, Moist mucous membranes. NECK: Normal range of motion, supple no lymphadenopathy LUNGS: respirations unlabored HEART: Regular rate and rhythm without murmurs EXTREMITIES: Normal range of motion, no pitting or edema. No cyanosis. Gait normal, pt ambulates without difficulty BACK: Lower lumbar paraspinal tenderness, right worse than left, lower lumbar midline tenderness, no deformities or step-offs. No CVA tenderness. NEUROLOGICAL: Cranial nerves grossly intact. Normal speech, normal gait. No saddle anesthesia. Negative straight leg test bilaterally. No foot drop. PSYCH: Normal mood, normal affect. SKIN: Warm, Dry, normal turgor, no rashes or lesions noted. - INFECTION CONTROL TRAVEL OUTSIDE OF THE [place] IN LAST 30 DAYS: No Course - Re-evaluation Re-evalutation: 11/16/19 07:39 The patient presents with low back pain without signs of spinal cord compression, cauda equina syndrome, infection, aneurysm, or other serious etiology. The patient is neurologically intact. Given the extremely risk of these diagnoses further testing and evaluation for these possibilities does not appear to be indicated at this time. Patient has been instructed to return if the symptoms worsen or change in any way. - Vital Signs Vital signs: Temp Pulse Resp BP Pulse Ox 98.3 F 86 16 166/103 H 100 11/16/19 05:46 11/16/19 05:46 11/16/19 05:46 11/16/19 05:46 11/16/19 05:46 - Laboratory Laboratory results interpreted by me: 11/16/19 06:49 Labs- Entire Visit 11/16/19 06:03 Urine Color YELLOW Urine Appearance SLIGHTLY-CLOUDY Urine pH 6.0 Ur Specific [place] 1.020 Urine Protein NEGATIVE Urine Glucose (UA) NEGATIVE Urine Ketones NEGATIVE Urine Blood NEGATIVE Urine Nitrite NEGATIVE Urine Bilirubin NEGATIVE Urine Urobilinogen NEGATIVE Ur Leukocyte Esterase NEGATIVE Urine WBC (Auto) 1 Urine RBC (Auto) 1 Squamous Epi Cells Auto <1 Amorphous Sediment Auto TRACE Urine Mucus (Auto) FEW Urine Ascorbic Acid 40 H - Diagnostic Test Radiology reviewed: Reports reviewed Discharge - Discharge Clinical Impression: Low back pain Qualifiers: Chronicity: chronic Back pain laterality: unspecified Sciatica presence: with sciatica Sciatica laterality: sciatica laterality unspecified Qualified Code(s): M54.40 - Lumbago with sciatica, unspecified side; G89.29 - Other chronic pain Condition: Stable Disposition: HOME, SELF-CARE Instructions: Ice Packs ([facility]), Oral Narcotic Medication ([facility]), Low Back Pain ([facility]) Additional Instructions: Return immediately for any new or worsening symptoms Followup with your primary care provider, call tomorrow to make a followup appointment Prescriptions: Lidocaine [Lidoderm 5% (700 mg) Transdermal Patch] 1 patch TP DAILY PRN #10 adh..patch PRN Reason: Hydrocodone/Acetaminophen [[place] 5-325 mg Tablet] 1 tab PO Q6 PRN #15 tablet PRN Reason: Referrals: ANKUR LARRY PA [Primary Care Provider] - Follow up as needed [facility] [Provider Group] - Follow up as needed
--- NOTE | 2019-11-16 06:33 | RADIOLOGY REPORT (SQ) ---
LUMBAR SPINE: 11/16/2019 5:32 AM CDT TECHNIQUE: AP, lateral, right and left lateral oblique, coned down views of the lumbar spine were obtained. COMPARISON: None available HISTORY: 29-year old patient with back pain. FINDINGS: Five non-rib bearing vertebrae are seen. The vertebral bodies appear well-aligned. The vertebral body heights appear to be maintained. No significant intervertebral disc space narrowing is seen. There is no evidence of acute fracture or subluxation. Both sacroiliac joints appear normal. No discrete pars defects are seen. IMPRESSION: There is no evidence of an acute fracture or subluxation is seen in the lumbar spine.
[2019-11-16 07:55] VITALS: BP 134/84
== END 2019-11-16 07:57 | disposition home or self-care (01) ==
LOC: ER 05:16
DX: M54.40 Lumbago with sciatica, unspecified side (principal); G89.29 Other chronic pain; Z72.0 Tobacco use
CPT/HCPCS: 99283; 96372; 81001; 72110; J1885; J1170

== ENCOUNTER 2019-11-29 16:29 | Emergency (ER) | payer OTHER ==
--- NOTE | 2019-11-29 16:41 | ER Document Report ---
ED Medical Screen (RME) - General Stated Complaint: BACK PAIN Time Seen by Provider: 11/29/19 16:36 Primary Care Provider: ANKUR LARRY PA [Primary Care Provider] - Follow up as needed Mode of Arrival: Wheelchair Information source: Patient Notes: 29-year-old male presents with history of chronic back pain since February. Reports he has bulging disc. Reports he has had injections in his back. Last injection was in September. He reports approximately 2 weeks ago he started having severe pain. [facility] he was then switched to Robaxin because he takes amitriptyline for the nerve pain. Reports for the last couple weeks he has not been feeling himself when he voids. Reports he is dribbling after he voids. Reports just finished taking Vicodin so having trouble with bowel movements. Denies incontinence of stool. No complaints of fever. Last MRI was done in March. I have greeted and performed a rapid initial assessment of this patient. A comprehensive ED assessment and evaluation of the patient, analysis of test results and completion of the medical decision making process will be conducted by additional ED providers. TRAVEL OUTSIDE OF THE [place] IN LAST 30 DAYS: No - Related Data Allergies/Adverse Reactions: amoxicillin [Amoxicillin] Allergy (Severe, Verified 11/29/19 16:35) Hives Past Medical History - Social History Chew tobacco use (# tins/day): No Frequency of alcohol use: None Drug Abuse: None - Past Medical History Cardiac Medical History: Reports: Hx Hypertension - prehypertension Denies: Hx Congestive Heart Failure, Hx Heart Attack Pulmonary Medical History: Denies: Hx Asthma, Hx Bronchitis, Hx COPD, Hx Pneumonia, Hx Tuberculosis Neurological Medical History: Reports: Hx Migraine. Denies: Hx Seizures Renal/ Medical History: Denies: Hx Benign Prostatic Hyperplasia, Hx End Stage Renal Disease, Hx Kidney Stones, Hx Peritoneal Dialysis GI Medical History: Reports: Hx Gastritis, Hx Gastroesophageal Reflux Disease, Hx Pancreatitis, Hx Ulcer - never diagnosed, Hx Colonoscopy, Hx Endoscopy Musculoskeltal Medical History: Reports Hx Arthritis, Denies Hx Multiple Sclerosis Psychiatric Medical History: Reports: Hx Depression Denies: Hx Bipolar Disorder, Hx Schizophrenia Past Surgical History: Reports: Hx Cholecystectomy - Immunizations Immunizations up to date: Yes Hx Diphtheria, Pertussis, Tetanus Vaccination: Yes Physical Exam - Vital signs Vitals: Temp Pulse Resp BP Pulse Ox 97.5 F 99 28 H 106/86 H 97 11/29/19 16:32 11/29/19 16:32 11/29/19 16:32 11/29/19 16:32 11/29/19 16:32 Course - Vital Signs Vital signs: Temp Pulse Resp BP Pulse Ox 97.5 F 99 28 H 106/86 H 97 11/29/19 16:32 11/29/19 16:32 11/29/19 16:32 11/29/19 16:32 11/29/19 16:32 Doctor's Discharge - Discharge Referrals: ANKUR LARRY PA [Primary Care Provider] - Follow up as needed
[2019-11-29] MEDS ORDERED: KETOROLAC TROMETHAMINE 60 MG/2 ML SDV IM ONE (18:13)
[2019-11-29] MEDS ORDERED: OXYCODONE-ACETAMINOPHEN 5-325 MG TABLET PO ONE (19:06)
--- NOTE | 2019-11-29 19:24 | ER Document Report ---
ED General - General Chief Complaint: Back Pain Stated Complaint: BACK PAIN Time Seen by Provider: 11/29/19 16:36 Primary Care Provider: ANKUR LARRY PA [NO LOCAL MD] - Follow up as needed Mode of Arrival: Wheelchair TRAVEL OUTSIDE OF THE [place] IN LAST 30 DAYS: No - HPI Notes: Patient is a 29-year-old male who presents to the emergency department for evaluation of an increase in back pain. He has chronic back pain. He has been getting injections. He states his last injection was back in September. It worked for multiple weeks. He was on Percocet in the past, as well as Vicodin. Currently he is taking amitriptyline, Robaxin, and Neurontin. He states he has had an increase in pain over the last 3 days, where he states it feels like "my fit is trying to pull out my spine." He states that he cannot feel himself urinate, but on further questioning this means that he cannot feel the stream of urine at the tip of his penis. He denies any bowel or bladder incontinence, he is able to urinate without difficulty. He has no saddle anesthesia, no focal numbness or weakness. His pain is primarily in the right side of his lower back and radiates down his right hip and down the entire right leg. He states he has had numbness and tingling pain in the leg as well. He admits that his MRIs show bulging disks and spinal stenosis. - Related Data Allergies/Adverse Reactions: amoxicillin [Amoxicillin] Allergy (Severe, Verified 11/29/19 16:35) Hives Past Medical History - General Information source: Patient - Social History Smoking Status: Never Smoker Chew tobacco use (# tins/day): No Frequency of alcohol use: None Drug Abuse: None Family History: Reviewed & Not Pertinent Patient has suicidal ideation: No Patient has homicidal ideation: No - Past Medical History Cardiac Medical History: Reports: Hx Hypertension - prehypertension Denies: Hx Congestive Heart Failure, Hx Heart Attack Pulmonary Medical History: Denies: Hx Asthma, Hx Bronchitis, Hx COPD, Hx Pneumonia, Hx Tuberculosis Neurological Medical History: Reports: Hx Migraine. Denies: Hx Seizures Renal/ Medical History: Denies: Hx Benign Prostatic Hyperplasia, Hx End Stage Renal Disease, Hx Kidney Stones, Hx Peritoneal Dialysis GI Medical History: Reports: Hx Gastritis, Hx Gastroesophageal Reflux Disease, Hx Pancreatitis, Hx Ulcer - never diagnosed, Hx Colonoscopy, Hx Endoscopy Musculoskeletal Medical History: Reports Hx Arthritis, Denies Hx Multiple Sclerosis Psychiatric Medical History: Reports: Hx Depression Denies: Hx Bipolar Disorder, Hx Schizophrenia Past Surgical History: Reports: Hx Cholecystectomy - Immunizations Immunizations up to date: Yes Hx Diphtheria, Pertussis, Tetanus Vaccination: Yes Physical Exam - Vital signs Vitals: Temp Pulse Resp BP Pulse Ox 97.5 F 99 28 H 106/86 H 97 11/29/19 16:32 11/29/19 16:32 11/29/19 16:32 11/29/19 16:32 11/29/19 16:32 - Notes Notes: This is a 29-year-old male who appears his stated age in no acute distress. He is visibly uncomfortable, however, movement seems to exacerbate this. Vital signs reviewed, please refer to chart. Head is normocephalic, atraumatic. Pupils equal round, reactive to light. Neck is supple without meningismus. Heart is regular rate and rhythm. Lungs are clear to auscultation bilaterally. Abdomen is soft, nontender, normoactive bowel sounds throughout. Examination of the spine yields no midline tenderness or step-off. He has paraspinal musculature tenderness noted, right greater than left, from L3 down into the SI joints bilaterally. Negative straight leg raise on the left, unable to perform on the right secondary to pain. Patellar and Achilles reflexes are 2+ bilaterally, sensation is intact. Strength testing deferred secondary to level of pain. Extremities without cyanosis, clubbing. Posterior calves are nontender. Peripheral pulses are equal. Skin is warm and dry. Patient is awake, alert, neurological exam is nonfocal. Rectal exam was performed with JENNA Felipe, present in the room. Patient has no saddle anesthesia or paresthesias. He has good rectal tone. Course - Re-evaluation Re-evalutation: 11/29/19 19:33 Patient presents to the emergency department for evaluation. He has an increase in his chronic back pain. Despite his symptoms, he does not in fact have any red flag symptoms. Awaiting urinalysis. He was treated here with Toradol and Percocet. Assuming urinalysis is unremarkable we will send the patient home with Medrol Dosepak and close follow-up. Patient is stable, we will continue to monitor. 11/29/19 21:12 Patient's urinalysis is unremarkable. We will send him home with a Medrol Dosepak and close follow-up. He is to return to the ER with worsening. - Vital Signs Vital signs: Temp Pulse Resp BP Pulse Ox 97.4 F 66 18 143/82 H 97 11/29/19 21:33 11/29/19 21:33 11/29/19 21:33 11/29/19 21:33 11/29/19 21:33 - Laboratory Laboratory results interpreted by me: 11/29/19 20:50 Urine Protein 30 H Urine Ascorbic Acid 40 H Discharge - Discharge Clinical Impression: Acute exacerbation of chronic low back pain Condition: Stable Disposition: HOME, SELF-CARE Unit Admitted: Nursery Additional Instructions: If you develop fever, increased pain, incontinence of bowel or bladder, numbness, weakness, or any other new or concerning symptoms, please return immediately to the emergency department for reevaluation. Prescriptions: Methylprednisolone [Medrol Dosepack (4 mg/Tab) 21 Tab/Dosepak] 4 mg PO ASDIR PRN #21 tab.[id number] PRN Reason: Referrals: ANKUR LARRY PA [NO LOCAL MD] - Follow up as needed
[2019-11-29 21:04] LABS: APPEARANCE,URINE SLIGHTLY-CLOUDY; BILIRUBIN,URINE NEGATIVE (NEGATIVE); CALCIUM OXALATE CRYSTALS,URINE RARE /HPF; COLOR,URINE AMBER; GLUCOSE, URINE NEGATIVE (NEGATIVE); KETONES,URINE NEGATIVE (NEGATIVE); LEUKOCYTE ESTERASE,URINE NEGATIVE (NEGATIVE); NITRITE,URINE NEGATIVE (NEGATIVE); PROTEIN,URINE 30 mg/dL (NEGATIVE); URINE SPECIFIC GRAVITY 1.024; UROBILINOGEN,URINE NEGATIVE mg/dL (<2.0)
[2019-11-29 21:39] VITALS: BP 143/82
== END 2019-11-29 21:33 | disposition home or self-care (01) ==
LOC: ER 16:29
DX: G89.29 Other chronic pain (principal); M54.9 Dorsalgia, unspecified; Z88.0 Allergy status to penicillin; Z90.49 Acquired absence of other specified parts of digestive tract
CPT/HCPCS: 99283; 96372; 81001; J1885

== ENCOUNTER 2020-02-04 09:36 | Day surgery (SDC) | payer OTHER ==
[~2020-02-04 09:36] MED LIST: CEFAZOLIN 2 GM/D5W RTU 2 GM/50 ML RTUPB IV PRN
[2020-02-04] MEDS ORDERED: ONDANSETRON HCL INJ/PF 4 MG/2 ML SDV ONE (11:06)
[2020-02-04] MEDS ORDERED: DEXAMETHASONE SOD PHOS INJ 10 MG/1 ML VIAL ONE (11:06)
[2020-02-04] MEDS ORDERED: MIDAZOLAM 2 MG/2 ML INJ ONE (11:06)
[2020-02-04] MEDS ORDERED: CARBOXYMETHYLCELLULOSE SOD 0.5% 0.4 ML DROPERETTE ONE (11:06)
[2020-02-04] MEDS ORDERED: FENTANYL CITRATE INJ/PF 100 MCG/2 ML AMPUL ONE (11:06)
[2020-02-04] MEDS ORDERED: PROPOFOL INJ 200 MG/20 ML VIAL IV ONE (11:07)
[2020-02-04] MEDS ORDERED: SUCCINYLCHOLINE CHLORIDE INJ 200 MG/10 ML VIAL ONE (11:07)
[2020-02-04] MEDS ORDERED: COCAINE HCL 4% TOPICAL SOLN 4 ML ONE (11:09)
[2020-02-04] MEDS ORDERED: OXYMETAZOLINE HCL 0.05% NASAL SPRAY 15 ML BOTTLE ONE (11:09)
[2020-02-04] MEDS ORDERED: LIDOCAINE 2%/EPINEPHRINE INJ 1.7 ML CARTRIDGE ONE (11:10)
[2020-02-04] MEDS: LIDOCAINE 2%/EPINEPHRINE INJ 1.7 ML CARTRIDGE ONE ×2 (11:45→11:50)
--- NOTE | 2020-02-04 13:22 | Operative Report ---
Operative Report-[facility] Operative Report: Date: 04 February 2020 History: 30-year-old male presents with a history of nasal dyspnea and a left neck mass. Physical exam revealed a deviated nasal septum, bilateral nasal vestibular stenosis and inferior turbinate hypertrophy and left neck mass. Presents today for a septoplasty, repair nasal vestibular stenosis and turbinate reduction excision left neck mass Pre-operative diagnosis: 1. Deviated nasal septum 2. Inferior turbinate hypertrophy, bilateral 3. Bilateral nasal vestibular stenosis 4. Left neck mass measuring 4 cm Post operative diagnosis: same as above. Procedure: 1. Nasal septoplasty 2. Inferior turbinate reduction, right side 3 . Inferior turbinate reduction, left side 4. Repair nasal vestibular stenosis, right side (CPT: 49633) 5. Repair nasal vestibular stenosis, left side (CPT: 25164) 6. Excision left neck mass, measuring 4 cm Surgeon: Marcelo Abdalla MD, [facility] Anesthia: KURT Description of the procedure: After receiving informed consent, the patient was brought to the operating room and placed supine on the operating table. After successful induction and intubation by anesthesia, cottonoids soaked with 4% cocaine replaced into each nasal cavity for approximately five minutes. They were removed andthe septum along with the inferior turbinate were injected with 2% Xylocaine with 1:100,000 epinephrine. The cottonoids were replaced. The planned incision marked was made over the left neck mass. This was then infiltrated 2% lidocaine 100,000 epinephrine. The patient was then prepped and draped in a sterile fashion. Tension was then directed to the left neck mass were using a 15 blade incision was made through the dermis and down to the subcutaneous tissue. The mass, which was consistent with an epidermal inclusion cyst was dissected free from surrounding tissue using blunt and sharp dissection. Hemostasis was obtained using bipolar cautery. The mass measured 2 x 2 cm. Mass was removed in toto. The wound was then irrigated with saline. Hemostasis was obtained using bipolar cautery. The incision was closed with dermal sutures of 5-0 Monocryl. Dermabond, Mastisol, Steri-Strips and a pressure dressing applied. Tension was then directed towards the nasal portion of the surgery. The cottonoids where then removed. A number 15 blade was used to make a dg transfixtion incision on the left side. Next using a Patel and then A [place] elevator, a mucoperichondrial/mucoperiosteal flap was elevated back to the sphenoid rostrum. This was then elevated onto the nasal floor. A mucoperichondrial flap was elevated around the caudal edge of the septum and onto the right side. This exposed both sides of the cartilaginous/osseous septum. The osseocartilaginous junction was and a mucoperiosteal flap was elevated on the right side. Tolentino scissors were used to make horizontal cuts in the perpendicular plate of the ethmoid bone, superiorly and inferiorly. [place] forceps were used to remove this. A vomeroethmoid spur was identified and the mucosa was carefully dissected from it. A V-chisel was used to remove this spur. An inferior cartilage spur was removed using a D knife . Maxillary crest was deviated towards the left and was removed using a V chisel. Willie-Matias's were used to remove a high septal deflection in the area of the internal nasal valve. The septum was viewed with the flaps in place and found to be relatively straight. The middle turbinates were visible on both sides. The dg transfixion incision was closed using 4-0 chromic and a 4-0 plain gut whip stitch was used to secure the septal flaps. Attention was then directed to the nasal valve area on the right, where the VivDesti nasal airway remodeling system was used to repair the nasal vestibular stenosis. The handpiece was placed superiorly at the caudal margin of the upper lateral cartilage and the device was activated. This was repeated 2 more times marching inferiorly towards the piriform aperture. A similar procedure was done on the left. Attention was then directed to the inferior turbinates where an inferior turbinate reduction was performed bilaterally. The Celon was used to perform an intramural cauterization bilaterally. Then each turbinate was medialized and then lateralized using a Sayer elevator . Silicon splints coated with bacitracin were placed into each nasal cavity and secured with a 2-0 prolene. Afrin soaked cottonoids were placed into each nasal cavity and secured to each other in front of the nose. The patient was then given back to anesthesia who successfully extubated them. The patient tolerated the procedure well without any complications. Estimated blood loss: 20 mL Fluids: 1200 mL The patient was transferred to the post anesthesia care unit in stable condition with spontaneous respirations.
[2020-02-04] MEDS ORDERED: MORPHINE SULFATE 10 MG/ML INJ ONE (13:26)
[2020-02-04] MEDS ORDERED: NALOXONE HCL INJ/PF 0.4 MG/1 ML SDV ONE (14:24)
== END 2020-02-04 15:37 | disposition home or self-care (01) ==
LOC: SC 09:36
PROVIDERS: ATTEND Otolaryngology
DX: J34.2 Deviated nasal septum (principal); J34.3 Hypertrophy of nasal turbinates; J34.89 Other specified disorders of nose and nasal sinuses; L72.0 Epidermal cyst; Z87.828 Personal history of other (healed) physical injury and trauma
CPT/HCPCS: 30465; 30520; 30140; 87635; 88304 ×2; 00160; 21552; J2250; J3490 ×4; J3010; J2270; J2310; J0330; J2405; J2704; J1100; J0690; C9803; 160

== ENCOUNTER 2020-02-10 01:28 | Emergency (ER) | payer OTHER ==
[2020-02-10 01:35] VITALS: BP 144/100
[2020-02-10 02:46] LABS: ABSOLUTE EOSINOPHILS # (AUTO) 0.4 10^3/uL (0.0-0.6); ABSOLUTE LYMPHOCYTES (AUTO) 2.2 10^3/uL (0.5-4.7); ABSOLUTE MONOCYTES (AUTO) 0.8 10^3/uL (0.1-1.4); ABSOLUTE NEUT (AUTO) 5.3 10^3/uL (1.7-8.2); BASOPHILS % (AUTO) 0.4 % (0-2); EOSINOPHILS % (AUTO) 5.1 % (0-6); HEMATOCRIT 46.9 % (37.9-51.0); HEMOGLOBIN 16.6 g/dL (13.5-17.0); LYMPHOCYTES % (AUTO) 25.4 % (13-45); MEAN CORPUSCULAR HEMOGLOBIN 30.8 pg (27.0-33.4); MEAN CORPUSCULAR HGB CONC 35.3 g/dL (32.0-36.0); MEAN CORPUSCULAR VOLUME 87 fl (80-97); MONOCYTES % (AUTO) 9.1 % (3-13); PLATELET COUNT 276 10^3/uL (150-450); RED BLOOD COUNT 5.37 10^6/uL (4.35-5.55); RED CELL DISTRIBUTION WIDTH 12.2 % (11.5-14.0); TOTAL CELLS COUNTED % (AUTO) 100 %; WHITE BLOOD COUNT 8.8 10^3/uL (4.0-10.5)
[2020-02-10 02:55] LABS: ALBUMIN 4.2 g/dL (3.5-5.0); ALKALINE PHOSPHATASE 88 U/L (38-126); ANION GAP 8 (5-19); ASPARTATE AMINO TRANSFERASE 42 U/L (17-59); BILIRUBIN,TOTAL 0.7 mg/dL (0.2-1.3); BLOOD UREA NITROGEN 12 mg/dL (7-20); CALCIUM 9.6 mg/dL (8.4-10.2); CARBON DIOXIDE 24 mmol/L (22-30); CHLORIDE 106 mmol/L (98-107); GLUCOSE 105 mg/dL (75-110); POTASSIUM 3.5 mmol/L (3.6-5.0); TOTAL PROTEIN 6.6 g/dL (6.3-8.2)
[2020-02-10] MEDS ORDERED: LORAZEPAM 1 MG TABLET PO ONE (03:20)
[2020-02-10] MEDS ORDERED: DULOXETINE HCL 30 MG CAPSULE.DR PO ONE (03:21)
--- NOTE | 2020-02-10 03:55 | ER Document Report ---
Entered by STEPH SALCEDO SCRIBE 02/10/20 0320 Acting as scribe for:GAIL HERNANDEZ IV, MD ED General - General Chief Complaint: Anxiety Stated Complaint: ANXIETY Time Seen by Provider: 02/10/20 03:05 Primary Care Provider: [facility] [Primary Care Provider] - Follow up as needed Mode of Arrival: Ambulatory Information source: Patient Notes: This 30 year old male patient with a history of anxiety and depression presents to the ED today with complaints of anxiety that started yesterday evening around 2200. Patient states that he decided to stop taking his Duloxetine (60 mg qd) because he "wasn't sure it was gonna mix" with the pain medication he was prescribed on 01/04/2020 after having a septoplasty at [facility]. He reports that it feels like he is going to "jump out of my own skin." Denies suicidal or homicidal ideation. TRAVEL OUTSIDE OF THE [place] IN LAST 30 DAYS: No - Related Data Allergies/Adverse Reactions: amoxicillin [Amoxicillin] Allergy (Severe, Verified 01/30/20 12:27) Hives Past Medical History - General Information source: Patient, [facility] Records - Social History Smoking Status: Never Smoker Cigarette use (# per day): No Chew tobacco use (# tins/day): No Smoking Education Provided: No Frequency of alcohol use: None Drug Abuse: Marijuana Lives with: Spouse/Significant other Family History: Reviewed & Not Pertinent Patient has suicidal ideation: No Patient has homicidal ideation: No Neurological Medical History: Reports: Hx Migraine GI Medical History: Reports: Hx Gastritis, Hx Gastroesophageal Reflux Disease, Hx Pancreatitis, Hx Colonoscopy, Hx Endoscopy Musculoskeletal Medical History: Reports Hx Arthritis Psychiatric Medical History: Reports: Hx Anxiety, Hx Depression Past Surgical History: Reports: Hx Cholecystectomy - Immunizations Immunizations up to date: Yes Hx Diphtheria, Pertussis, Tetanus Vaccination: Yes Review of Systems - Review of Systems Constitutional: No symptoms reported EENT: No symptoms reported Cardiovascular: No symptoms reported Respiratory: No symptoms reported Gastrointestinal: No symptoms reported Genitourinary: No symptoms reported Musculoskeletal: No symptoms reported Skin: No symptoms reported Hematologic/Lymphatic: No symptoms reported Neurological/Psychological: See HPI, Anxiety. denies: Homicidal ideation, Suicidal ideation -: Yes All other systems reviewed and negative Physical Exam - Vital signs Vitals: Temp Pulse Resp BP Pulse Ox 99.1 F 106 H 26 H 144/100 H 99 02/10/20 01:34 02/10/20 01:34 02/10/20 01:34 02/10/20 01:34 02/10/20 01:34 - General General appearance: Alert, Anxious In distress: None - HEENT Head: Normocephalic, Atraumatic Eyes: Normal Pupils: PERRL - Respiratory Respiratory status: No respiratory distress Chest status: Nontender Breath sounds: Normal Chest palpation: Normal - Cardiovascular Rhythm: Regular Heart sounds: Normal auscultation Murmur: No Friction rub: No Gallop: None auscultated - Abdominal Inspection: Normal Distension: No distension Bowel sounds: Normal Tenderness: Nontender - Abdomen soft Organomegaly: No organomegaly - Back Back: Normal, Nontender - Extremities General upper extremity: Normal inspection General lower extremity: Normal inspection - Neurological Neuro grossly intact: Yes Orientation: AAOx4 - Psychological Associated symptoms: Anxious - Skin Skin Temperature: Warm Skin Moisture: Dry Skin Color: Normal Course - Re-evaluation Re-evalutation: 02/10/20 03:22 Patient instructed to resume his duloxetine as prescribed. Patient counseled about potential problems with abruptly stopping the medication without direction from a physician or other qualified health care provider. All questions were answered prior to discharge. Emergency signs and symptoms, reasons to return to the emergency department discussed with patient. - Vital Signs Vital signs: Temp Pulse Resp BP Pulse Ox 99.1 F 106 H 26 H 144/100 H 99 02/10/20 01:41 02/10/20 01:34 02/10/20 01:34 02/10/20 01:34 02/10/20 01:34 - Laboratory Result Diagrams: 02/10/20 01:53 02/10/20 01:53 Laboratory results interpreted by me: 02/10/20 01:53 Potassium 3.5 L ALT 191 H Discharge - Discharge Clinical Impression: Anxiety Condition: Good Disposition: HOME, SELF-CARE Additional Instructions: Return to the Emergency Department without delay if any worse. HOME CARE INSTRUCTIONS & INFORMATION: Thank you for choosing us for your medical needs. We hope you're satisfied with the care you received. After you leave, you must properly care for your problem and, at the same time, observe its progress. Any condition can change. Some illnesses can change rapidly over hours or days. If your condition worsens, return to the Emergency Department or see your physician promptly. ABOUT YOUR X-RAYS AND EKG'S: If you had an EKG or X-rays taken, they have been read by the Emergency Physician. The X-rays and EKG's will also be read by a Ra diologist or Roll Plugger within 24 hours. If discrepancies are noted, you will be notified by telephone. Please be certain the ED has a correct telephone number & address where you can be reached. Also, realize that some fractures or abnormalities do not show up on initial X-rays. If your symptoms continue, see your physician. ABOUT YOUR LABORATORY TEST: If you had laboratory tests, the results have been reviewed by the Emergency Physician. Some test results (for example cultures) may not be available for several days. You will be contacted if any test result shows you need additional treatment. Please be certain the ED has a correct telephone number and address where you can be reached. ABOUT YOUR MEDICATIONS: You will receive instructions on how to take your medicine on the prescription label you receive. Additional information may be provided by the Pharmacy. If you have questions afterwards, call the ED for clarification or further instructions. Some prescribed medications may cause drowsiness. Do not perform tasks such as driving a car or operating machinery without consulting your Pharmacist. If you feel you need a refill of pain medication, your condition will need re-evaluation. Please do not call for a refill of any medication. ABOUT YOUR SIGNATURE: Signature of this document acknowledges to followin. Understanding that you received emergency treatment and that you may be released before al medical problems are known or treated. Please be certain the ED has a correct phone number & address where you can be reached. 2. Acknowledgement that you will arrange for follow-up care as recommended. 3. Authorization for the Emergency Physician to provide information to your follow-up Physician in order to maximize your care. AT ANY TIME, IF YOUR SYMPTOMS CHANGE SIGNIFICANTLY OR WORSEN OR YOU DEVELOP NEW SYMPTOMS, RETURN TO THE EMERGENCY DEPARTMENT IMMEDIATELY FOR RE-EVALUATION. OUR GOAL IS TO PROVIDE EXCELLENT MEDICAL CARE! WE HOPE THAT WE HAVE MET YOUR EXPECTATIONS DURING YOUR EMERGENCY DEPARTMENT VISIT AND THAT YOU FEEL YOU HAVE RECEIVED EXCELLENT CARE! Anxiety The physician feels that some of your health problems are being caused by anxiety. Anxiety affects your health in many ways. Anxiety alone can cause palpitations, sweats, chest pains, abdominal pains, shortness of breath, and headaches. It contributes to ulcer disease, high blood pressure, irritable bowel syndrome, and has been shown to cause flare-ups of many other diseases. Anxiety is not a simple disorder to treat. If the anxiety is due to recent life stresses, you may simply need time to "work through" the changes. If the anxiety is due to an underlying unhappiness with yourself or due to psychiatric disturbance, professional help will be needed. Your physician can refer you for further help if needed. Anti-anxiety medication is occasionally given if the stress is acute or if you are having trouble sleeping. Chronic or frequent use of these medications is not a good idea because the body becomes reliant on it, preventing you from dealing with life's normal stresses. Prescriptions: Lorazepam [Ativan 1 mg Tablet] 1 mg PO Q8HP PRN 2 Days #6 tablet PRN Reason: anxiety Referrals: [facility] [Primary Care Provider] - Follow up as needed I personally performed the services described in the documentation, reviewed and edited the documentation which was dictated to the scribe in my presence, and it accurately records my words and actions.
== END 2020-02-10 04:08 | disposition home or self-care (01) ==
LOC: ER 01:28
DX: F41.9 Anxiety disorder, unspecified (principal); Z79.899 Other long term (current) drug therapy; Z98.890 Other specified postprocedural states; Z88.1 Allergy status to other antibiotic agents
CPT/HCPCS: 36415; 80053; 85025; 99283

== ENCOUNTER 2020-04-19 11:51 | Emergency (ER) | payer OTHER ==
[2020-04-19] MEDS ORDERED: LORAZEPAM INJ 2 MG/1 ML VIAL IV ONE (12:23)
--- NOTE | 2020-04-19 12:25 | ER Document Report ---
ED Medical Screen (RME) - General Chief Complaint: Back Injury Stated Complaint: BACK PAIN Time Seen by Provider: 04/19/20 12:19 Primary Care Provider: [facility] [Primary Care Provider] - Follow up as needed Mode of Arrival: Wheelchair Information source: Patient Notes: 30-year-old male patient presenting to the emergency department with anxiety attack and severe low back pain. Patient reports he had an L5-S1 fusion done last week in [place]. He states this morning he lost his balance and tripped falling down onto his knee. He is reporting severe low back pain. He is taking Percocet, he states the Percocet is making him have severe anxiety. He states he was seen here several months ago for anxiety, given a short prescription, he had 1 tablet left over he took it yesterday and it definitely helped with his symptoms. Patient is hyperventilating in triage. He will be given a dose of IM Ativan and will be taken for CT. I have greeted and performed a rapid initial assessment of this patient. A comprehensive ED assessment and evaluation of the patient, analysis of test results and completion of the medical decision making process will be conducted by additional ED providers. I have specifically instructed the patient or family members with the patient to immediately return to any nursing staff should anything change in the patient's condition or with their chief complaint. TRAVEL OUTSIDE OF THE [place] IN LAST 30 DAYS: No - Related Data Allergies/Adverse Reactions: amoxicillin [Amoxicillin] Allergy (Severe, Verified 01/30/20 12:27) Hives acetaminophen [From Percocet] Adverse Reaction (Severe, Verified 04/19/20 12:14) panic attacks oxycodone [From Percocet] Adverse Reaction (Severe, Verified 04/19/20 12:14) panic attacks Home Medications: duloxetine, gabapentin, robaxin, migraine prn Past Medical History - Social History Chew tobacco use (# tins/day): No Frequency of alcohol use: None Drug Abuse: Marijuana - Past Medical History Cardiac Medical History: Denies: Hx Congestive Heart Failure, Hx Heart Attack, Hx Hypertension Pulmonary Medical History: Denies: Hx Asthma, Hx Bronchitis, Hx COPD, Hx Pneumonia, Hx Tuberculosis Neurological Medical History: Reports: Hx Migraine. Denies: Hx Cerebrovascular Accident, Hx Seizures Renal/ Medical History: Denies: Hx Benign Prostatic Hyperplasia, Hx End Stage Renal Disease, Hx Kidney Stones, Hx Peritoneal Dialysis GI Medical History: Reports: Hx Gastritis, Hx Gastroesophageal Reflux Disease, Hx Pancreatitis, Hx Colonoscopy, Hx Endoscopy. Denies: Hx Hepatitis, Hx Hiatal Hernia, Hx Ulcer Musculoskeltal Medical History: Reports Hx Arthritis, Denies Hx Multiple Sclerosis Psychiatric Medical History: Reports: Hx Anxiety, Hx Depression Denies: Hx Bipolar Disorder, Hx Schizophrenia Infectious Medical History: Denies: Hx Hepatitis Past Surgical History: Reports: Hx Cholecystectomy. Denies: Hx Open Heart Surgery, Hx Pacemaker - Immunizations Immunizations up to date: Yes Hx Diphtheria, Pertussis, Tetanus Vaccination: Yes Physical Exam - Vital signs Vitals: Pulse Resp BP Pulse Ox 111 H 36 H 118/84 100 04/19/20 11:56 04/19/20 11:56 04/19/20 11:56 04/19/20 11:56 Course - Vital Signs Vital signs: Temp Pulse Resp BP Pulse Ox 111 H 36 H 118/84 100 04/19/20 11:56 04/19/20 11:56 04/19/20 11:56 04/19/20 11:56 Doctor's Discharge - Discharge Referrals: [facility] [Primary Care Provider] - Follow up as needed
--- NOTE | 2020-04-19 13:44 | RADIOLOGY REPORT (SQ) ---
EXAM DESCRIPTION: CT LUMBAR SPINE WITHOUT IMAGES COMPLETED DATE/TIME: 04/19/2020 1:31 pm REASON FOR STUDY: L5-S1 fusion last week, fell this morning COMPARISON: Preoperative radiographs from October. TECHNIQUE: Axial images acquired through the lumbar spine without intravenous contrast. Images revi ewed with lung, soft tissue and bone windows. Reconstructed coronal and sagittal MPR images reviewed . All images stored on PACS. All CT scanners at this facility use dose modulation, iterative reconstruction, and/or weight based d osing when appropriate to reduce radiation dose to as low as reasonably achievable (ALARA). [facility]: Dose Right [facility]: CareDose [facility]: Dose Right [facility]: Teradose 4D [facility]: demandmart RADIATION DOSE: mGy. LIMITATIONS: None. FINDINGS: SEGMENTATION: Normal. No transitional anatomy. ALIGNMENT: Chronic mild convex left scoliosis. No listhesis. VERTEBRAL BODIES: No fractures. No dislocation. No acute findings. DISCS: No significant protrusions. Study limited by lack of intrathecal contrast. PEDICLES, TRANSVERSE PROCESSES: No fractures. No dislocation. No acute findings. FACETS, POSTERIOR ELEMENTS: Status post right hemilaminectomy and partial facet resection at the lumb osacral junction. No pars defect identified. Otherwise intact posterior elements. HARDWARE: Dorsal rods and screws with disc fixation device spanning the lumbosacral junction. Instru mentation looks intact and without migration. VISUALIZED RIBS: No fractures. SOFT TISSUES: No significant or acute finding in adjacent soft tissues. OTHER: No paraspinal fluid collections detected. No mass. Mild deep soft tissue dorsal the edema. No aortic aneurysm or retroperitoneal hematoma. IMPRESSION: 1. Postoperative changes in the spine. 2. Otherwise unremarkable study. TECHNICAL DOCUMENTATION: JOB ID: [id number] Quality ID # [id number]: Final reports with documentation of one or more dose reduction techniques (e.g., Au tomated exposure control, adjustment of the mA and/or kV according to patient size, use of iterative reconstruction technique) 2010 [employer]- All Rights Reserved Reading location - IP/workstation name: [email or web address]
--- NOTE | 2020-04-19 15:00 | ER Document Report ---
ED General - General Chief Complaint: Back Injury Stated Complaint: BACK PAIN Time Seen by Provider: 04/19/20 12:19 [facility] [[facility]] - Follow up as needed Mode of Arrival: Wheelchair TRAVEL OUTSIDE OF THE [place] IN LAST 30 DAYS: No - HPI Notes: 30-year-old male presents with back pain and anxiety attacks. Patient states last Monday, 6 days ago, he underwent L5/S1 fusion. He states he has been doing well at home, he has been ambulatory. For postop pain management he was prescribed Percocet. He reports that Percocet causes anxiety attacks. He had a nose surgery earlier this year and was prescribed Percocet, it caused severe anxiety attacks. He reports that he has been having issues with anxiety since now restarting this medication. He states that yesterday he had a big anxiety attack. He woke up around 10 AM today and felt an anxiety attack coming on. When he was getting out of bed, he tripped and felt his legs buckled, he landed onto his bilateral knees. He did not lose consciousness or hit his head. He states that this triggered increasing back pain and even more anxiety. He states that he has been trying to address anxiety with his PCP, he is awaiting an appointment. He states he previously was prescribed Ativan which significantly helps anxiety. Actually stating today that his main focus is anxiety and not so much the back pain. He denies numbness or tingling in his lower legs, he denies loss of bowel or bladder control. He has been ambulatory since the fall. He additionally complains of pain in his bilateral hips. - Related Data Allergies/Adverse Reactions: amoxicillin [Amoxicillin] Allergy (Severe, Verified 01/30/20 12:27) Hives acetaminophen [From Percocet] Adverse Reaction (Severe, Verified 04/19/20 12:14) panic attacks oxycodone [From Percocet] Adverse Reaction (Severe, Verified 04/19/20 12:14) panic attacks Home Medications: duloxetine, gabapentin, robaxin, migraine prn Past Medical History - General Information source: Patient - Social History Smoking Status: Former Smoker Chew tobacco use (# tins/day): No Frequency of alcohol use: None Drug Abuse: Marijuana Family History: Reviewed & Not Pertinent Patient has homicidal ideation: No - Past Medical History Cardiac Medical History: Denies: Hx Congestive Heart Failure, Hx Heart Attack, Hx Hypertension Pulmonary Medical History: Denies: Hx Asthma, Hx Bronchitis, Hx COPD, Hx Pneumonia, Hx Tuberculosis Neurological Medical History: Reports: Hx Migraine. Denies: Hx Cerebrovascular Accident, Hx Seizures Renal/ Medical History: Denies: Hx Benign Prostatic Hyperplasia, Hx End Stage Renal Disease, Hx Kidney Stones, Hx Peritoneal Dialysis GI Medical History: Reports: Hx Gastritis, Hx Gastroesophageal Reflux Disease, Hx Pancreatitis, Hx Colonoscopy, Hx Endoscopy. Denies: Hx Hepatitis, Hx Hiatal Hernia, Hx Ulcer Musculoskeletal Medical History: Reports Hx Arthritis, Denies Hx Multiple Sclerosis Psychiatric Medical History: Reports: Hx Anxiety, Hx Depression Denies: Hx Bipolar Disorder, Hx Schizophrenia Infectious Medical History: Denies: Hx Hepatitis Past Surgical History: Reports: Hx Cholecystectomy. Denies: Hx Open Heart Surgery, Hx Pacemaker - Immunizations Immunizations up to date: Yes Hx Diphtheria, Pertussis, Tetanus Vaccination: Yes Review of Systems - Review of Systems Constitutional: denies: Fever EENT: No symptoms reported Cardiovascular: Heart racing Respiratory: No symptoms reported Gastrointestinal: No symptoms reported Genitourinary: No symptoms reported Male Genitourinary: No symptoms reported Musculoskeletal: Back pain Skin: No symptoms reported Hematologic/Lymphatic: No symptoms reported Neurological/Psychological: denies: Weakness, Numbness Physical Exam - Vital signs Vitals: Pulse Resp BP Pulse Ox 111 H 36 H 118/84 100 04/19/20 11:56 04/19/20 11:56 04/19/20 11:56 04/19/20 11:56 - General General appearance: Appears well In distress: None - HEENT Head: Normocephalic, Atraumatic Pupils: PERRL - Respiratory Breath sounds: Normal - Cardiovascular Rhythm: Regular Heart sounds: Normal auscultation Normal capillary refill: Yes - Abdominal Tenderness: Nontender - Back Notes: 2 vertical surgical scars to lower back, appear to be well-healing, no surrounding erythema or expressible purulence. He has no midline tenderness. He does have some bilateral tenderness to the lateral lumbar musculature - Extremities General lower extremity: No: Edema Hip: Tender - Mild bilaterally - Neurological Neuro grossly intact: Yes Cognition: Normal Orientation: AAOx4 Motor strength normal: LUE, RUE, LLE, RLE Sensory: Normal - Psychological Associated symptoms: Anxious - Skin Skin Temperature: Warm Course - Re-evaluation Re-evalutation: 04/19/20 15:19 30-year-old male about 1 week postop from L5/S1 fusion per his report. Had mechanical fall while getting out of bed this morning. He is neurologically intact, has intact strength and sensation to his lower extremities, he does not exhibit any symptoms of bowel/bladder incontinence. I would this time not have suspicion for cord compression. As part of the triage process he received a CT lumbar spine, negative for new acute injury. Patient and his father updated on results. Patient more so wants to focus on anxiety, as he relates using Percocet triggering anxiety attacks. He was given a dose of Ativan in triage which has helped, though he still does seem a little anxious, will try oral meds. I did discuss with him that a short prescription for attic van can be provided, however it is proper for him to address this with his primary care doctor. Additionally we did discuss pain management moving forward, he will ultimately address pain management options with his spinal surgeon, for now he will do Tylenol and ibuprofen. 04/19/20 16:23 Hip x-rays resulted, no acute fracture. 04/19/20 16:30 Patient and father updated on x-ray results. We again discussed nonnarcotic pain medication until he can touch base with the surgeon, instructed to call in the morning. Have provided a very short prescription for Ativan, have instructed him to call PCP in the morning as well to discuss. Patient was stable at time of discharge. Return precautions were given. - Vital Signs Vital signs: Temp Pulse Resp BP Pulse Ox 111 H 36 H 118/84 100 04/19/20 11:56 04/19/20 11:56 04/19/20 11:56 04/19/20 11:56 - Diagnostic Test Radiology reviewed: Image reviewed, Reports reviewed Discharge - Discharge Clinical Impression: Anxiety, Post-operative pain Condition: Stable Disposition: HOME, SELF-CARE Additional Instructions: As discussed, please use Tylenol and Motrin for pain until you can discuss further pain control with the spinal surgeon. You have been provided a short course of Ativan, please touch base with your primary care doctor. Return to the emergency department for any concerning or worsening symptoms. Prescriptions: Lorazepam [Ativan 1 mg Tablet] 1 mg PO Q8HP PRN 3 Days #9 tablet PRN Reason: anxiety [facility]errals: [facility] [[facility]] - Follow up as needed
[2020-04-19] MEDS ORDERED: LORAZEPAM 1 MG TABLET PO ONE (15:14)
[2020-04-19] MEDS ORDERED: IBUPROFEN 800 MG TABLET PO ONE (15:14)
[2020-04-19] MEDS ORDERED: ACETAMINOPHEN 325 MG TABLET PO ONE (15:14)
--- NOTE | 2020-04-19 16:21 | RADIOLOGY REPORT (SQ) ---
EXAM DESCRIPTION: HIP BILATERAL IMAGES COMPLETED DATE/TIME: 04/19/2020 3:00 pm REASON FOR STUDY: fall, b/l hip pain. COMPARISON: None. NUMBER OF VIEWS: Three views. TECHNIQUE: AP pelvis and additional frog-leg view of the right and left hip. LIMITATIONS: None. FINDINGS: MINERALIZATION: Normal. PRIMARY HIP: No fracture or dislocation. No worrisome bone lesions. OPPOSITE HIP: No fracture or dislocation. No worrisome bone lesions. PUBIS AND ISCHIUM: No fracture. PELVIS: No fracture. SACRUM: No fracture or dislocation. No worrisome bone lesions. LOWER LUMBAR SPINE: Posterior fusion L5-S1. SOFT TISSUES: No findings. OTHER: No other significant finding. IMPRESSION: No acute fracture or dislocation of the pelvis or hips. TECHNICAL DOCUMENTATION: JOB ID: [id number] 2010 [employer]- All Rights Reserved Reading location - IP/workstation name: [email or web address]
[2020-04-19 16:45] VITALS: BP 107/76
--- NOTE | 2020-04-19 20:22 | EKG REPORT ---
SEVERITY:- BORDERLINE ECG - SINUS TACHYCARDIA BORDERLINE T WAVE ABNORMALITIES : Confirmed by: Margo Patricio 19-Apr-2020 20:21:45
== END 2020-04-19 16:52 | disposition home or self-care (01) ==
LOC: ER 11:51
DX: F41.9 Anxiety disorder, unspecified (principal); G89.18 Other acute postprocedural pain; M54.9 Dorsalgia, unspecified; M25.551 Pain in right hip; M25.552 Pain in left hip; W19.XXXA Unspecified fall, initial encounter; Y93.89 Activity, other specified; F12.10 Cannabis abuse, uncomplicated; F32.9 Major depressive disorder, single episode, unspecified; Z79.899 Other long term (current) drug therapy; Z98.1 Arthrodesis status; Z87.891 Personal history of nicotine dependence
CPT/HCPCS: 93005; 99285; 96374; 73522; 72131; 93010; J2060

== ENCOUNTER 2020-06-05 12:19 | Emergency (ER) | payer OTHER ==
[2020-06-05] MEDS ORDERED: ONDANSETRON HCL INJ/PF 4 MG/2 ML SDV IV ONE ×2 (12:54→15:45)
[2020-06-05] MEDS ORDERED: NORMAL SALINE 1000 ML 1,000 ML IV ONE ×2 (12:54→15:45)
--- NOTE | 2020-06-05 12:55 | ER Document Report ---
ED Medical Screen (RME) - General Chief Complaint: Nausea/Vomiting/Diarrhea Stated Complaint: ABDOMINAL PAIN/NAUSEA/VOMITING Time Seen by Provider: 06/05/20 12:50 Primary Care Provider: JUAN,MIGUEL [Primary Care Provider] - Follow up as needed Information source: Patient Notes: Patient presents complaining of abdominal pain generalized since March. Patient reports vomiting that started yesterday. Patient denies any emesis today although has had diarrhea x2 episodes today. Patient denies any fever. Patient does have a history of IBS. I have greeted and performed a rapid initial assessment of this patient. A comprehensive ED assessment and evaluation of the patient, analysis of test results and completion of the medical decision making process will be conducted by additional ED providers. TRAVEL OUTSIDE OF THE [place] IN LAST 30 DAYS: No - Related Data Allergies/Adverse Reactions: amoxicillin [Amoxicillin] Allergy (Severe, Verified 01/30/20 12:27) Hives acetaminophen [From Percocet] Adverse Reaction (Severe, Verified 04/19/20 12:14) panic attacks oxycodone [From Percocet] Adverse Reaction (Severe, Verified 04/19/20 12:14) panic attacks Past Medical History - Past Medical History Cardiac Medical History: Denies: Hx Congestive Heart Failure, Hx Heart Attack, Hx Hypertension Pulmonary Medical History: Denies: Hx Asthma, Hx Bronchitis, Hx COPD, Hx Pneumonia, Hx Tuberculosis Neurological Medical History: Reports: Hx Migraine. Denies: Hx Cerebrovascular Accident, Hx Seizures Renal/ Medical History: Denies: Hx Benign Prostatic Hyperplasia, Hx End Stage Renal Disease, Hx Kidney Stones, Hx Peritoneal Dialysis GI Medical History: Reports: Hx Gastritis, Hx Gastroesophageal Reflux Disease, Hx Pancreatitis, Hx Colonoscopy, Hx Endoscopy. Denies: Hx Hepatitis, Hx Hiatal Hernia, Hx Ulcer Musculoskeltal Medical History: Reports Hx Arthritis, Denies Hx Multiple Sclerosis Psychiatric Medical History: Reports: Hx Anxiety, Hx Depression Denies: Hx Bipolar Disorder, Hx Schizophrenia Infectious Medical History: Denies: Hx Hepatitis Past Surgical History: Reports: Hx Cholecystectomy. Denies: Hx Open Heart Surgery, Hx Pacemaker - Immunizations Immunizations up to date: Yes Hx Diphtheria, Pertussis, Tetanus Vaccination: Yes Physical Exam - Vital signs Vitals: Temp Pulse Resp BP Pulse Ox 97.7 F 76 18 147/77 H 98 06/05/20 12:24 06/05/20 12:24 06/05/20 12:24 06/05/20 12:24 06/05/20 12:24 - Abdominal Tenderness: Tender - Diffuse abdominal tenderness Course - Vital Signs Vital signs: Temp Pulse Resp BP Pulse Ox 97.7 F 76 18 147/77 H 98 06/05/20 12:24 06/05/20 12:24 06/05/20 12:24 06/05/20 12:24 06/05/20 12:24 Doctor's Discharge - Discharge [facility]errals: [facility] [[facility]] - Follow up as needed
[2020-06-05 14:13] LABS: ABSOLUTE EOSINOPHILS # (AUTO) 0.5 10^3/uL (0.0-0.6); ABSOLUTE LYMPHOCYTES (AUTO) 1.3 10^3/uL (0.5-4.7); ABSOLUTE MONOCYTES (AUTO) 0.9 10^3/uL (0.1-1.4); ABSOLUTE NEUT (AUTO) 5.5 10^3/uL (1.7-8.2); BASOPHILS % (AUTO) 0.3 % (0-2); EOSINOPHILS % (AUTO) 5.8 % (0-6); HEMOGLOBIN 17.6 g/dL (13.5-17.0); LYMPHOCYTES % (AUTO) 15.4 % (13-45); MEAN CORPUSCULAR HGB CONC 35.9 g/dL (32.0-36.0); MEAN CORPUSCULAR VOLUME 87 fl (80-97); MONOCYTES % (AUTO) 11.1 % (3-13); PLATELET COUNT 252 10^3/uL (150-450); RED BLOOD COUNT 5.66 10^6/uL (4.35-5.55); RED CELL DISTRIBUTION WIDTH 12.5 % (11.5-14.0); SEGMENTED NEUTROPHILS % (AUTO) 67.4 % (42-78); TOTAL CELLS COUNTED % (AUTO) 100 %; WHITE BLOOD COUNT 8.2 10^3/uL (4.0-10.5)
[2020-06-05 14:26] LABS: APPEARANCE,URINE SLIGHTLY-CLOUDY; BILIRUBIN,URINE NEGATIVE (NEGATIVE); CALCIUM OXALATE CRYSTALS,URINE FEW /HPF; COLOR,URINE AMBER; GLUCOSE, URINE NEGATIVE (NEGATIVE); KETONES,URINE NEGATIVE (NEGATIVE); LEUKOCYTE ESTERASE,URINE NEGATIVE (NEGATIVE); NITRITE,URINE NEGATIVE (NEGATIVE); PROTEIN,URINE 30 mg/dL (NEGATIVE); URINE SPECIFIC GRAVITY 1.028
[2020-06-05 14:32] LABS: ALBUMIN 4.7 g/dL (3.5-5.0); ALKALINE PHOSPHATASE 76 U/L (38-126); ANION GAP 12 (5-19); ASPARTATE AMINO TRANSFERASE 38 U/L (17-59); BILIRUBIN,DIRECT 0.2 mg/dL (0.0-0.4); BILIRUBIN,TOTAL 0.9 mg/dL (0.2-1.3); BLOOD UREA NITROGEN 13 mg/dL (7-20); CALCIUM 9.9 mg/dL (8.4-10.2); CARBON DIOXIDE 23 mmol/L (22-30); CHLORIDE 106 mmol/L (98-107); GLUCOSE 101 mg/dL (75-110); POTASSIUM 4.3 mmol/L (3.6-5.0); TOTAL PROTEIN 7.2 g/dL (6.3-8.2)
--- NOTE | 2020-06-05 14:53 | RADIOLOGY REPORT (SQ) ---
EXAM DESCRIPTION: ABDOMEN 2 VIEWS IMAGES COMPLETED DATE/TIME: 06/05/2020 2:13 pm REASON FOR STUDY: abd pain COMPARISON: None. NUMBER OF VIEWS: Two views. TECHNIQUE: Supine and erect/decubitus radiographic images of the abdomen acquired. LIMITATIONS: Upright view excludes the pelvis. FINDINGS: FREE AIR: None. No abnormal gas collections. LUNG BASES: Clear. BOWEL GAS PATTERN: Few scattered gas-filled small bowel loops in the upper abdomen. No air fluid lev els visualized . No distended large or small bowel loops identified. CALCIFICATIONS: No suspicious calcifications. SOFT TISSUES: No gross mass or suggestion of organomegaly. HARDWARE: L5-S1 posterior fusion hardware. Cholecystectomy clips. BONES: No acute fracture. No worrisome bone lesions. OTHER: No other significant finding. IMPRESSION: NON-SPECIFIC BOWEL GAS PATTERN. Few scattered gas-filled small bowel loops in the upper abdomen. No air fluid levels visualized . No distended large or small bowel loops identified.. TECHNICAL DOCUMENTATION: JOB ID: [id number] [id number] 2010 [employer]- All Rights Reserved Reading location - IP/workstation name: [email or web address]
--- NOTE | 2020-06-05 16:02 | ER Document Report ---
ED General - General Chief Complaint: Abdominal Pain Stated Complaint: ABDOMINAL PAIN/NAUSEA/VOMITING Time Seen by Provider: 06/05/20 12:50 [facility]: [facility] [[facility]] - Follow up as needed Notes: Patient is a 30-year-old white male with a history of spinal fusion and L5-S1 about a month ago in [facility], cholecystectomy, and pancreatitis who presents the emergency department today with a chief complaint of abdominal discomfort, diarrhea and vomiting. He states about a month ago after his surgery he started having some diarrhea. He states for the past month he has had several episodes of diarrhea per day. He states any oral intake results in diarrhea. Reports he has had intermittent episodes of diffuse abdominal discomfort. Reports shortly after the surgery about a week after he started tapering off of gabapentin. He states he has been done with gabapentin for several weeks. He reports also starting at the same time to taper off of Cymbalta. He tapered over 4 weeks off of Cymbalta and has recently finished. He states he was unsure if this was related. He states yesterday he started having some vomiting associated and has had 2 episodes of vomiting in combination with the diarrhea and abdominal discomfort. He is concerned giving the progressive nature of the symptoms and went to an urgent care prior to arrival. They were concerned with his tenderness on his abdominal exam and sent him here for further evaluation. The patient denies any known fevers, chills or night sweats. No recent travel or known sick contacts. He was hospitalized for 4 days 1 month ago for his surgery. TRAVEL OUTSIDE OF THE [place] IN LAST 30 DAYS: No - Related Data Allergies/Adverse Reactions: amoxicillin [Amoxicillin] Allergy (Severe, Verified 06/05/20 15:39) Hives oxycodone [From Percocet] Adverse Reaction (Severe, Verified 06/05/20 15:39) panic attacks Past Medical History - General Information source: Patient - Social History Smoking Status: Never Smoker Chew tobacco use (# tins/day): No Frequency of alcohol use: None Drug Abuse: Marijuana Family History: Reviewed & Not Pertinent - Past Medical History Cardiac Medical History: Denies: Hx Congestive Heart Failure, Hx Heart Attack, Hx Hypertension Pulmonary Medical History: Denies: Hx Asthma, Hx Bronchitis, Hx COPD, Hx Pneumonia, Hx Tuberculosis Neurological Medical History: Reports: Hx Migraine. Denies: Hx Cerebrovascular Accident, Hx Seizures Renal/ Medical History: Denies: Hx Benign Prostatic Hyperplasia, Hx End Stage Renal Disease, Hx Kidney Stones, Hx Peritoneal Dialysis GI Medical History: Reports: Hx Gastritis, Hx Gastroesophageal Reflux Disease, Hx Pancreatitis, Hx Colonoscopy, Hx Endoscopy. Denies: Hx Hepatitis, Hx Hiatal Hernia, Hx Ulcer Musculoskeletal Medical History: Reports Hx Arthritis, Denies Hx Multiple Sclerosis Psychiatric Medical History: Reports: Hx Anxiety, Hx Depression Denies: Hx Bipolar Disorder, Hx Schizophrenia Infectious Medical History: Denies: Hx Hepatitis Past Surgical History: Reports: Hx Cholecystectomy. Denies: Hx Open Heart Surgery, Hx Pacemaker - Immunizations Immunizations up to date: Yes Hx Diphtheria, Pertussis, Tetanus Vaccination: Yes Review of Systems - Review of Systems Constitutional: denies: Fever EENT: denies: Eye discharge Cardiovascular: denies: Orthopnea Respiratory: denies: Short of breath Gastrointestinal: Vomiting Genitourinary: denies: Frequency Male Genitourinary: denies: Testicular pain Musculoskeletal: denies: Deformity Skin: denies: Lesions Hematologic/Lymphatic: denies: Blood clots Neurological/Psychological: denies: Gait changes Physical Exam - Vital signs Vitals: Temp Pulse Resp BP Pulse Ox 97.7 F 76 18 147/77 H 98 06/05/20 12:24 06/05/20 12:24 06/05/20 12:24 06/05/20 12:24 06/05/20 12:24 - General General appearance: Appears well, Alert In distress: None - Respiratory Respiratory status: No respiratory distress Chest status: Nontender Breath sounds: Normal Chest palpation: Normal - Cardiovascular Rhythm: Regular Heart sounds: Normal auscultation - Abdominal Inspection: Normal, Striae Distension: No distension Bowel sounds: Normal Tenderness: Tender - Slight tenderness to deep palpation in all quadrants Organomegaly: No organomegaly - Back Back: Scars. No: CVA tenderness - Extremities General upper extremity: Normal inspection, Nontender, Normal color, Normal ROM, Normal temperature General lower extremity: Normal inspection, Nontender, Normal color, Normal ROM, Normal temperature, Normal weight bearing. No: Juloi's sign - Neurological Neuro grossly intact: Yes Cognition: Normal Orientation: AAOx4 - Psychological Associated symptoms: Normal affect, Normal mood - Skin Skin Temperature: Warm Skin Moisture: Dry Skin Color: Normal Course - Re-evaluation Re-evalutation: 06/05/20 18:42 Imaging studies unremarkable for any acute process per radiologist. Patient's laboratory work-up is largely unremarkable as well. Negative for C. difficile. He is positive for marijuana. We discussed this at length. He reports actually this coincides quite nicely with his GI upset. He reports that he found that he was allergic to Percocet after his spinal fusion and needed an alternative to pain management so he started using marijuana. He states this started about the same time that he started discontinuing gabapentin and Cymbalta and came off the Percocet and started having the GI symptoms. He states this is likely the cul prit and reports that he is a month past his fusion now and will stop marijuana as he feels like he does not need much pain management support any further. We discussed symptomatic measures such as hot showers and capsaicin cream. We will give a prescription for capsaicin. He will discontinue marijuana. Give him a traditional antiemetic such as Zofran and encouraged push clear fluids for the n ext 24 hours and a slow gradual return to a bland diet and then regular diet as tolerated. Counseled him at length regarding the importance of outpatient follow-up and advised that he return here or any ER immediately with any new, persistent or worsening symptoms. He verbalized understood and agreed. 06/05/20 18:45 - Vital Signs Vital signs: Temp Pulse Resp BP Pulse Ox 99.6 F 69 14 116/78 99 06/05/20 16:08 06/05/20 16:08 06/05/20 16:08 06/05/20 16:08 06/05/20 16:08 - Laboratory Result Diagrams: 06/05/20 13:40 06/05/20 13:40 Laboratory results interpreted by me: 06/05/20 06/05/20 06/05/20 13:40 13:40 13:40 RBC 5.66 H Hgb 17.6 H ALT 64 H Lipase 321.9 H Urine Protein 30 H Urine Urobilinogen 2.0 H Urine Ascorbic Acid 20 H Discharge - Discharge Clinical Impression: Nausea vomiting and diarrhea Adverse reaction to cannabis Qualifiers: Encounter type: initial encounter Qualified Code(s): T40.7X5A - Adverse effect of cannabis (derivatives), initial encounter Condition: Stable Disposition: HOME, SELF-CARE Instructions: Vomiting ([facility]) Additional Instructions: Please discontinue marijuana. Please take the nausea medications and use the cream as needed for gastrointestinal upset. Please follow-up with your regular doctor for continued evaluation, care and management. Please return here or any ER immediately with any new, persistent or worsening symptoms. Prescriptions: Capsaicin 42.5 gm TP PRN PRN #60 cream..g. PRN Reason: Ondansetron [Zofran Odt 4 mg Tablet] 4 mg PO Q8 PRN #20 tab.rapdis PRN Reason: [facility]errals: [facility] [Primary [facility]] - Follow up as needed
[2020-06-05 16:28] LABS: URINE AMPHETAMINES SCREEN NEGATIVE; URINE BARBITURATES SCREEN NEGATIVE; URINE BENZODIAZEPINES SCREEN NEGATIVE; URINE COCAINE SCREEN NEGATIVE; URINE METHADONE SCREEN NEGATIVE; URINE PHENCYCLIDINE SCREEN NEGATIVE
[2020-06-05 16:32] LABS: URINE MARIJUANA (THC) SCREEN UNCONFIRMED POSITIVE
--- NOTE | 2020-06-05 17:02 | RADIOLOGY REPORT (SQ) ---
EXAM DESCRIPTION: CT ABD/PELVIS WITH IV ONLY IMAGES COMPLETED DATE/TIME: 06/05/2020 4:36 pm REASON FOR STUDY: gen abd pain, n/v/d COMPARISON: 10/24/2018 TECHNIQUE: CT scan of the abdomen and pelvis performed using helical scanning technique with dynamic intravenous contrast injection. No oral contrast. Images reviewed with lung, soft tissue, and bone windows. Reconstructed coronal and sagittal MPR images reviewed. Delayed images for evaluation of the urinary system also acquired. All images stored on PACS. All CT scanners at this facility use dose modulation, iterative reconstruction, and/or weight based d osing when appropriate to reduce radiation dose to as low as reasonably achievable (ALARA). [facility]: Dose Right [facility]: CareDose [facility]: Dose Right [facility]: Teradose 4D [facility]: Proviation CONTRAST TYPE AND DOSE: contrast/concentration: Isovue 350.00 mmol/ml; Total Contrast Delivered: 100 .0 ml; Total Saline Delivered: 71.9 ml RENAL FUNCTION: BUN 13 creatinine 1.02 RADIATION DOSE: CT Rad equipment meets quality standard of care and radiation dose reduction techniq ues were employed. CTDIvol: 16.4 - 19.9 mGy. DLP: 2218 mGy-cm.. LIMITATIONS: None. FINDINGS: LOWER CHEST: No significant findings. No nodules or infiltrates. LIVER: Normal size. No masses. No dilated ducts. SPLEEN: Normal size. No focal lesions. PANCREAS: No masses. No significant calcifications. No adjacent inflammation or peripancreatic fluid collections. Pancreatic duct not dilated. GALLBLADDER: Surgically absent. ADRENAL GLANDS: No significant masses or asymmetry. RIGHT KIDNEY AND URETER: No solid masses. No significant calcifications. No hydronephrosis or hyd roureter. LEFT KIDNEY AND URETER: No solid masses. No significant calcifications. No hydronephrosis or hydr oureter. AORTA AND VESSELS: No aneurysm. No dissection. Renal arteries, SMA, celiac without stenosis. RETROPERITONEUM: No retroperitoneal adenopathy, hemorrhage or masses. BOWEL AND PERITONEAL CAVITY: No masses or inflammatory changes. No free fluid or peritoneal masses. APPENDIX: Normal. PELVIS: No mass. No free fluid. Normal bladder. ABDOMINAL WALL: No masses. No hernias. BONES: Posterior rods at L5-S1 with screws through the pedicles. OTHER: No other significant finding. IMPRESSION: NO SIGNIFICANT OR ACUTE FINDING IN THE ABDOMEN OR PELVIS ON CT SCAN WITH IV CONTRAST. TECHNICAL DOCUMENTATION: JOB ID: [id number] Quality ID # [id number]: Final reports with documentation of one or more dose reduction techniques (e.g., Au tomated exposure control, adjustment of the mA and/or kV according to patient size, use of iterative reconstruction technique) 2010 [employer]- All Rights Reserved Reading location - IP/workstation name: [email or web address]
[2020-06-05 18:21] LABS: C DIFFICILE GDH NEGATIVE (NEGATIVE)
[2020-06-05 18:49] VITALS: BP 140/76
== END 2020-06-05 18:54 | disposition home or self-care (01) ==
LOC: ER 12:19
DX: R11.2 Nausea with vomiting, unspecified (principal); R19.7 Diarrhea, unspecified; T40.7X5A Adverse effect of cannabis (derivatives), initial encounter; Z98.1 Arthrodesis status; Z90.49 Acquired absence of other specified parts of digestive tract; Z88.0 Allergy status to penicillin; Z88.6 Allergy status to analgesic agent
CPT/HCPCS: 99285; 96361; 96374; 36415; 83690; 85025; 80053; 81001; 80307; 87324; 87449; 74019; 74177; J2405; J7030